=== PATIENT | male | born 1945 | race Caucasian/White ===

== ENCOUNTER → 2021-10-30 | Outpatient (REF) | payer SELFPAY ==
[2021-10-30 09:23] LABS: Absolute Lymphocyte Count 2.35 X10^3/uL (0.83-4.51); Absolute Neutrophil Count 4.7 X10^3/uL (2.0-7.7); Basophil# 0.01 X10^3/uL; Basophil% 0.1 % (0-1); Eosinophil# 0.11 X10^3/uL; Eosinophils% 1.4 % (0-5); Hematocrit 30.8 % (40-54); Hemoglobin 9.7 g/dL (13.0-16.5); Lymphocyte # 2.35 X10^3/ul (0.83-4.51); Lymphocyte % 29.7 % (19-41); Mean Corp Hgb Conc 31.5 g/dL (32-36); Mean Corpuscular Hgb 29.1 pg (27.0-32.0); Mean Corpuscular Volume 92.5 fL (80-94); Monocyte# 0.72 X10^3/uL; Monocyte% 9.1 % (0-10); NRBC Flagged by Analyzer 0 % (0-5); Neutrophil % 59.4 % (47-70); Platelet Count 175 K/mm3 (150-450); RBC Distribution Width CV 14.5 % (11.6-14.6); RBC Distribution Width SD 48.9 fl (35.1-43.9); Red Blood Count 3.33 M/mm3 (4.6-6.2); White Blood Count 7.9 K/mm3 (4.4-11.0)
[2021-10-30 09:34] LABS: Anion Gap 2 (5-15); BUN 24 mg/dL (7-18); BUN/Creat Ratio 14.9 RATIO (10-20); Calcium,Total 8.4 mg/dL (8.5-10.1); Chloride 97 mmol/L (98-107); Creatinine, Serum 1.61 mg/dL (0.70-1.30); EST Glomerular Filtration Rate 45 mL/min (>60); Est Glom Filt Rate - Afr Amer 54 mL/min (>60); Glucose 116 mg/dL (74-106); Potassium 4.7 mmol/L (3.5-5.1); Sodium Level 133 mmol/L (136-145)
== END | disposition home or self-care (01) ==
LOC: OLS.WHLTCC 05:00
PROVIDERS: Visit Provider Family Medicine
DX: I48.20 Chronic atrial fibrillation, unspecified (principal); R54 Age-related physical debility; M62.81 Muscle weakness (generalized); R26.2 Difficulty in walking, not elsewhere classified; R27.8 Other lack of coordination; D50.9 Iron deficiency anemia, unspecified; Z74.1 Need for assistance with personal care
CPT/HCPCS: 36415; 80048; 85025

== ENCOUNTER → 2021-11-06 | Outpatient (REF) | payer SELFPAY ==
[2021-11-06 08:49] LABS: Absolute Lymphocyte Count 2.38 X10^3/uL (0.83-4.51); Absolute Neutrophil Count 3.1 X10^3/uL (2.0-7.7); Basophil# 0.01 X10^3/uL; Basophil% 0.2 % (0-1); Eosinophil# 0.08 X10^3/uL; Eosinophils% 1.3 % (0-5); Hematocrit 27.2 % (40-54); Hemoglobin 8.7 g/dL (13.0-16.5); Lymphocyte # 2.38 X10^3/ul (0.83-4.51); Lymphocyte % 37.8 % (19-41); Mean Corpuscular Volume 90.7 fL (80-94); Mean Platelet Vol. 10.2 fl (6.2-12.0); Monocyte# 0.68 X10^3/uL; Monocyte% 10.8 % (0-10); NRBC Flagged by Analyzer 0 % (0-5); Neutrophil # 3.12 X10^3/uL (2.7-7.7); Neutrophil % 49.4 % (47-70); Platelet Count 220 K/mm3 (150-450); RBC Distribution Width SD 46.5 fl (35.1-43.9); White Blood Count 6.3 K/mm3 (4.4-11.0)
[2021-11-06 09:14] LABS: Anion Gap 4 (5-15); BUN 35 mg/dL (7-18); BUN/Creat Ratio 22.7 RATIO (10-20); Calcium,Total 8.4 mg/dL (8.5-10.1); Chloride 96 mmol/L (98-107); Creatinine, Serum 1.54 mg/dL (0.70-1.30); EST Glomerular Filtration Rate 47 mL/min (>60); Est Glom Filt Rate - Afr Amer 57 mL/min (>60); Glucose 122 mg/dL (74-106); Potassium 4.3 mmol/L (3.5-5.1); Sodium Level 133 mmol/L (136-145)
== END | disposition home or self-care (01) ==
LOC: OLS.WHLTCC 04:00
PROVIDERS: Referring Provider Family Medicine; Visit Provider Family Medicine
DX: I48.20 Chronic atrial fibrillation, unspecified (principal); R54 Age-related physical debility; M62.81 Muscle weakness (generalized); R26.2 Difficulty in walking, not elsewhere classified; R27.8 Other lack of coordination; D50.9 Iron deficiency anemia, unspecified; Z74.1 Need for assistance with personal care
CPT/HCPCS: 36415; 80048; 85025

== ENCOUNTER → 2021-11-13 | Outpatient (REF) | payer SELFPAY ==
[2021-11-13 09:12] LABS: Absolute Lymphocyte Count 2.59 X10^3/uL (0.83-4.51); Absolute Neutrophil Count 4.1 X10^3/uL (2.0-7.7); Basophil# 0.01 X10^3/uL; Basophil% 0.1 % (0-1); Eosinophil# 0.07 X10^3/uL; Eosinophils% 0.9 % (0-5); Hematocrit 28.5 % (40-54); Hemoglobin 9.1 g/dL (13.0-16.5); Lymphocyte # 2.59 X10^3/ul (0.83-4.51); Lymphocyte % 34.5 % (19-41); Mean Corp Hgb Conc 31.9 g/dL (32-36); Mean Corpuscular Hgb 28.8 pg (27.0-32.0); Mean Corpuscular Volume 90.2 fL (80-94); Mean Platelet Vol. 10.5 fl (6.2-12.0); Monocyte# 0.68 X10^3/uL; Monocyte% 9.1 % (0-10); NRBC Flagged by Analyzer 0 % (0-5); Neutrophil # 4.13 X10^3/uL (2.7-7.7); Neutrophil % 55.1 % (47-70); Platelet Count 210 K/mm3 (150-450); RBC Distribution Width CV 14.4 % (11.6-14.6); RBC Distribution Width SD 47.5 fl (35.1-43.9); Red Blood Count 3.16 M/mm3 (4.6-6.2); White Blood Count 7.5 K/mm3 (4.4-11.0)
[2021-11-13 09:23] LABS: Anion Gap 7 (5-15); BUN 37 mg/dL (7-18); BUN/Creat Ratio 21.5 RATIO (10-20); Calcium,Total 8.3 mg/dL (8.5-10.1); Chloride 95 mmol/L (98-107); Creatinine, Serum 1.72 mg/dL (0.70-1.30); EST Glomerular Filtration Rate 41 mL/min (>60); Est Glom Filt Rate - Afr Amer 50 mL/min (>60); Glucose 148 mg/dL (74-106); Potassium 3.7 mmol/L (3.5-5.1); Sodium Level 134 mmol/L (136-145)
== END | disposition home or self-care (01) ==
LOC: OLS.WHLTCC 04:00
PROVIDERS: Referring Provider Family Medicine; Visit Provider Family Medicine
DX: I48.20 Chronic atrial fibrillation, unspecified (principal); R54 Age-related physical debility; M62.81 Muscle weakness (generalized); R26.2 Difficulty in walking, not elsewhere classified; R27.8 Other lack of coordination; D50.9 Iron deficiency anemia, unspecified; Z74.1 Need for assistance with personal care
CPT/HCPCS: 36415; 80048; 85025

== ENCOUNTER → 2021-12-06 | Outpatient (REF) | payer SELFPAY ==
[2021-12-06 09:23] LABS: Absolute Lymphocyte Count 2.88 X10^3/uL (0.83-4.51); Absolute Neutrophil Count 4.2 X10^3/uL (2.0-7.7); Basophil# 0.02 X10^3/uL; Basophil% 0.3 % (0-1); Eosinophil# 0.07 X10^3/uL; Eosinophils% 0.9 % (0-5); Hematocrit 29.1 % (40-54); Hemoglobin 8.9 g/dL (13.0-16.5); Lymphocyte # 2.88 X10^3/ul (0.83-4.51); Lymphocyte % 36.4 % (19-41); Mean Corp Hgb Conc 30.6 g/dL (32-36); Mean Corpuscular Hgb 28.3 pg (27.0-32.0); Mean Corpuscular Volume 92.4 fL (80-94); Mean Platelet Vol. 10.3 fl (6.2-12.0); Monocyte# 0.74 X10^3/uL; Monocyte% 9.4 % (0-10); NRBC Flagged by Analyzer 0 % (0-5); Neutrophil # 4.16 X10^3/uL (2.7-7.7); Neutrophil % 52.5 % (47-70); Platelet Count 269 K/mm3 (150-450); RBC Distribution Width CV 14.7 % (11.6-14.6); Red Blood Count 3.15 M/mm3 (4.6-6.2); White Blood Count 7.9 K/mm3 (4.4-11.0)
[2021-12-06 09:31] LABS: Anion Gap 4 (5-15); BUN 33 mg/dL (7-18); BUN/Creat Ratio 19.3 RATIO (10-20); Calcium,Total 8.7 mg/dL (8.5-10.1); Chloride 102 mmol/L (98-107); Creatinine, Serum 1.71 mg/dL (0.70-1.30); EST Glomerular Filtration Rate 42 mL/min (>60); Est Glom Filt Rate - Afr Amer 50 mL/min (>60); Glucose 122 mg/dL (74-106); Potassium 4.4 mmol/L (3.5-5.1); Sodium Level 137 mmol/L (136-145)
== END | disposition home or self-care (01) ==
LOC: OLS.WHLEAS 07:50
PROVIDERS: Visit Provider Family Medicine
DX: I48.20 Chronic atrial fibrillation, unspecified (principal); R54 Age-related physical debility; M62.81 Muscle weakness (generalized); R26.2 Difficulty in walking, not elsewhere classified; R27.8 Other lack of coordination; D50.9 Iron deficiency anemia, unspecified; Z74.1 Need for assistance with personal care
CPT/HCPCS: 36415; 80048; 85025

== ENCOUNTER → 2022-01-03 | Outpatient (REF) | payer MEDICARE, MEDICAID, SELFPAY ==
[2022-01-03 09:14] LABS: Absolute Lymphocyte Count 1.85 X10^3/uL (0.83-4.51); Absolute Neutrophil Count 4.7 X10^3/uL (2.0-7.7); Basophil# 0.01 X10^3/uL; Basophil% 0.1 % (0-1); Eosinophil# 0.06 X10^3/uL; Eosinophils% 0.8 % (0-5); Hematocrit 24.7 % (40-54); Hemoglobin 7.7 g/dL (13.0-16.5); Lymphocyte # 1.85 X10^3/ul (0.83-4.51); Lymphocyte % 25.1 % (19-41); Mean Corp Hgb Conc 31.2 g/dL (32-36); Mean Corpuscular Hgb 26.7 pg (27.0-32.0); Mean Corpuscular Volume 85.8 fL (80-94); Mean Platelet Vol. 9.9 fl (6.2-12.0); Monocyte# 0.76 X10^3/uL; Monocyte% 10.3 % (0-10); NRBC Flagged by Analyzer 0 % (0-5); Neutrophil # 4.65 X10^3/uL (2.7-7.7); Neutrophil % 63.3 % (47-70); Platelet Count 211 K/mm3 (150-450); RBC Distribution Width CV 14.3 % (11.6-14.6); RBC Distribution Width SD 44.3 fl (35.1-43.9); Red Blood Count 2.88 M/mm3 (4.6-6.2); White Blood Count 7.4 K/mm3 (4.4-11.0)
[2022-01-03 09:30] LABS: Anion Gap 5 (5-15); BUN 25 mg/dL (7-18); BUN/Creat Ratio 17.9 RATIO (10-20); Calcium,Total 8.3 mg/dL (8.5-10.1); Chloride 87 mmol/L (98-107); EST Glomerular Filtration Rate 52 mL/min (>60); Est Glom Filt Rate - Afr Amer 63 mL/min (>60); Glucose 109 mg/dL (74-106); Potassium 4.8 mmol/L (3.5-5.1); Sodium Level 126 mmol/L (136-145)
[2022-01-03 09:45] LABS: Vitamin B12 1329 pg/mL (211-911)
[2022-01-03 10:02] LABS: Hemoglobin A1c 5.9 % (3.8-5.6)
== END | disposition home or self-care (01) ==
LOC: OLS.WHLEAS 05:00
PROVIDERS: Visit Provider Family Medicine
DX: I48.20 Chronic atrial fibrillation, unspecified (principal); E11.9 Type 2 diabetes mellitus without complications; R54 Age-related physical debility; M62.81 Muscle weakness (generalized); R26.2 Difficulty in walking, not elsewhere classified; R27.8 Other lack of coordination; D51.9 Vitamin B12 deficiency anemia, unspecified; E83.42 Hypomagnesemia; Z74.1 Need for assistance with personal care
CPT/HCPCS: 36415; 80048; 82607; 83036; 83735; 85025

== ENCOUNTER 2022-01-30 22:40 | Inpatient (IN) | payer MEDICARE, MEDICAID, SELFPAY ==
[2022-01-30 22:42] VITALS: BP 109/67; PULSE 128; RESP 15; TEMP 37.1; O2SAT 93; BMI 34.5
[2022-01-30 22:46] VITALS: O2SAT 93
[2022-01-30 23:00] VITALS: O2SAT 95
--- NOTE | 2022-01-30 23:00 | EKG12_ITS ---
Test Reason : DYSRHYTHMIA Blood Pressure : / mmHG Vent. Rate : 117 BPM Atrial Rate : 117 BPM P-R Int : 000 ms QRS Dur : 162 ms QT Int : 386 ms P-R-T Axes : 000 -70 053 degrees QTc Int : 538 ms Likely A-flutter Left axis deviation Right bundle branch block Septal infarct , age undetermined Abnormal ECG Confirmed by BASIA GARCIA, LULY ([id number]), social media editor JOSE VELA ([id number]) on 02/01/2022 1:31:07 PM Referred By: MICKEY Confirmed By:NEYDA FLOR MD
--- NOTE | 2022-01-30 23:00 | RAD_ITS ---
STUDY: X-RAY CHEST REASON FOR EXAM: Male, 76 years old. Chest pain. Shortness of breath and wheezing. TECHNIQUE: Single AP portable view of the chest. COMPARISON: None. FINDINGS: The lungs are hypoexpanded. There is atelectasis versus infiltrate at the lung bases. Question small left pleural effusion. Normal size heart. Is evidence of median sternotomy. Left-sided cardiac pacemaker/ICD. Normal mediastinum and janeth. Normal visualized pulmonary arteries. Normal visualized aortic arch and descending thoracic aorta. The thoracic spine is obscured by the mediastinum. There is degenerative osteoarthritis of the bilateral shoulders. There is no demonstrated abnormality of the visualized soft tissue structures of the upper abdomen. RAD/Chest 1 View (Portable) IMPRESSION: 1. Infiltrate versus atelectasis at the lung bases with left pleural effusion 2. Cardiac pacemaker and evidence of median sternotomy.. Electronically Signed: Chito Conde DO at 23:43 EDT ,
--- NOTE | 2022-01-30 23:19 | EDS_ITS ---
HPI History of Present Illness Chief Complaint: Shortness of Breath Narrative Narrative: 76-year-old male presenting for shortness of breath, lightheadedness, weakness. He states its been a couple of days. Patient is a poor informant and does not provide much history otherwise. He does state that he is not having any chest pain. He does wear home oxygen which is 3 L via nasal cannula. Patient states that he does have a history of GI bleeding but has not noticed any black or bloo dy stools. Patient is on Eliquis for history of A. fib. [facility] Medical History (Updated 01/31/22 @ 00:[address] Marly Tolentino MD) Anxiety and depression Bipolar disorder BPH (benign prostatic hyperplasia) CAD (coronary artery disease) CHF (congestive heart failure) Chronic anemia Chronic respiratory failure with hypoxia CKD (chronic kidney disease), stage III COPD (chronic obstructive pulmonary disease) Diabetes mellitus, type 2 Former tobacco use GERD (gastroesophageal reflux disease) History of colon cancer History of GI bleed History of lung cancer History of placement of internal cardiac defibrillator HLD (hyperlipidemia) HTN (hypertension) Insomnia PAF (paroxysmal atrial fibrillation) Home Medications amitriptyline 150 mg tablet 150 mg PO DAILY 01/31/22 [History Last Taken Unknown] apixaban 5 mg tablet (Eliquis) 5 mg PO BID 01/31/22 [History Last Taken Unknown] aspirin 81 mg capsule 81 mg PO DAILY 01/31/22 [History Last Taken Unknown] buspirone 10 mg tablet 20 mg PO TID 01/31/22 [History Last Taken Unknown] cyanocobalamin (vitamin B-12) 1,000 mcg sublingual lozenge 1,000 mcg sublingual DAILY 01/31/22 [History Last Taken Unknown] duloxetine 60 mg capsule,delayed release (Cymbalta) 90 mg PO DAILY 01/31/22 [History Last Taken Unknown] finasteride 5 mg tablet 5 mg PO DAILY 01/31/22 [History Last Taken Unknown] fluticasone 500 mcg-salmeterol 50 mcg/dose blistr powdr for inhalation 1 inh inhalation BID 01/31/22 [History Last Taken Unknown] furosemide 40 mg tablet (Lasix) 40 mg PO BID 01/31/22 [History Last Taken Unknown] insulin glargine 100 unit/mL (3 mL) subcutaneous pen (Lantus Solostar U-100 Insulin) 12 unit subcut QHS 01/31/22 [History Last Taken Unknown] melatonin 3 mg capsule 3 mg PO QHS 01/31/22 [History Last Taken Unknown] metoprolol succinate 50 mg tablet,extended release 24 hr 50 mg PO DAILY 01/31/22 [History Last Taken Unknown] olanzapine 20 mg tablet 30 mg PO QHS 01/31/22 [History Last Taken Unknown] pantoprazole 20 mg tablet,delayed release 40 mg PO DAILY 01/31/22 [History Last Taken Unknown] potassium chloride 20 mEq tablet,extended release 40 meq PO DAILY 01/31/22 [History Last Taken Unknown] prazosin 5 mg capsule 5 mg PO QPM 01/31/22 [History Last Taken Unknown] sacubitril 24 mg-valsartan 26 mg tablet (Entresto) 1 tab PO BID 01/31/22 [History Last Taken Unknown] Allergy/AdvReac Type Severity Reaction Status Date / Time lithium Allergy PT UNSURE Verified 01/30/22 22:46 OF REACTION Family History (Updated 01/31/22 @ 00:[address] Marly Tolentino MD) Mother Heart disease Father Heart disease Surgical History (Updated 01/31/22 @ 00:[address] Marly Tolentino MD) History of tonsillectomy and adenoidectomy History of total bilateral knee replacement History of total right hip replacement S/P appendectomy S/P CABG x 3 S/P cholecystectomy Social History (Updated 01/31/22 @ 00:[address] Marly Tolentino MD) housing: snf Smoking Status: Former smoker how long ago did patient quit smoking: Smoked up to 3 ppd since teen until quit 2005. alcohol intake: never substance use type: does not use ROS ROS ED Constitutional Constitutional ED: Denies chills or sweats Eyes Eyes: Denies change in vision ENT ENT ED: Denies rhinorrhea or sore throat Cardiovascular Cardiovascular: Reports palpitations and racing heartbeat Respiratory/Chest Respiratory/Chest: Reports dyspnea and dyspnea on exertion Gastrointestinal Gastrointestinal: Denies abdominal pain, constipation or melena Genitourinary Genitourinary ED: Denies dysuria or hematuria Musculoskeletal Musculoskeletal: Denies arthralgias or back pain Integumentary Denies abscess Neurologic Neurologic: Denies headache(s) or paresthesias Psychiatric Psychiatric: Denies anxiety or depression EXAM Physical Exam Const Vital Signs: 01/30/22 22:42 01/30/22 22:46 01/30/22 23:00 Temperature 98.7 F Temperature Source Temporal Pulse Rate 128 H Respiratory Rate 15 Respiratory Effort Short of Breath Labored Blood Pressure 109/67 Blood Pressure Mean 81 Pulse Ox 93 95 Oxygen Delivery Method Nasal Cannula Nasal Cannula Venturi Mask Oxygen Flow Rate (L/min) 4 4 01/31/22 00:01 Temperature Temperature Source Pulse Rate 115 H Respiratory Rate 14 Respiratory Effort Blood Pressure 85/47 L Blood Pressure Mean 59 Pulse Ox 94 Oxygen Delivery Method Nasal Cannula Oxygen Flow Rate (L/min) 6 Positive well nourished and obese General Appearance ED: pallor Nutritional Appearance: obese HEENT Reports dry mucous membranes atraumatic Mouth ED: Yes dry mucous membranes Mouth: dry mucous membranes Eyes PERRL General Eye ED: Yes pale conjunctiva; Negative for scleral icterus Resp Auscultation: rhonchi throughout; Negative for wheezes Cardio regular rhythm Rate: tachycardic GI non-tender and non-distended Neuro CN's II-XII intact bilaterally and no sensory deficits noted Sensorium / Orientation: alert Speech: speech normal Skin General Skin Exam: pallor; Negative for jaundice Lesions: no lesions MDM MDM MDM Narrative Medical decision making narrative: Presenting lightheaded and weakness. He does appear to be short of breath. He is not complaining of this necessarily. No reported fevers. He normally wears 3 L of oxygen via nasal cannula currently he is requiring anywhere from 4-6. Was unclear whether he was in acute heart failure so initially I withheld fluids. His blood pressure was 109/67 and his heart rate was 129. I obtained an EKG which on my interpretation shows a sinus sinus rhythm with a ventricular rate of 170 bpm with right bundle dale block and QTC prolongation of 538. Chest x-ray on my interpretation shows a left pleural effusion and infiltrate versus atelectasis at the bases. Patient CBC shows a slight leukocytosis at 13.8. Hemoglobin is stable at 7.7. Platelets are normal at 305. Creatinine is somewhat elevated at 1.72 at last check it was 1.4. GFR of 41 today. BNP is 45.6. High-sensitivity troponin is 10. Patient's blood pressure did dip to 85/47 so I did give him 500 cc of IV fluids. I went to reevaluate him he said he is feeling fine and he wants to go home. I spoke with his son who is his power of funeral home makeup artist and he states that he has been steadily declining for over a year. He states that his father is basically given up and does not [facility]. He does report that he had a previous history of colon resection secondary to cancer. He was never on chemotherapy. We did discuss that he does not want to be intubated per the son. I did discuss with him the possibility of putting in a central line and I went over the risk and benefit of this. Given that his son feels like he has been steadily declining he does not want to to do anything really invasive and states he feels comfortable if the patient is not improving with some hydration and treatment in the hospital that he would consider palliative/hospice care for his father. Discussed with the hospitalist for admission and will treat as possible aspiration pneumonia due to infiltrate and leukocytosis. Patient's blood pressure was not improving and he was given another 500 cc bolus and started at a rate of 125 an hour. Impression: 1. Leukocytosis 2. Aspiration pneumonia 3. Dehydration 4. Hypotension 5. Chronic knee Lab Data Attestation: I reviewed the patient's lab results. Labs: Laboratory Results - last 24 hr 01/30/22 01/30/22 01/30/22 22:55 22:55 22:55 WBC 13.8 H RBC 3.00 L Hgb 7.7 L Hct 25.0 L MCV 83.3 MCH 25.7 L MCHC 30.8 L RDW Std Deviation 45.6 H RDW Coeff of James 15.0 H Plt Count 305 MPV 9.6 Immature Gran % (Auto) 0.600 Neut % (Auto) 89.7 H Lymph % (Auto) 3.6 L Mcminn % (Auto) 5.9 Eos % (Auto) 0.1 Baso % (Auto) 0.1 Absolute Neuts (auto) 12.4 H Absolute Lymphs (auto) 0.50 L Nucleated RBC % 0 Anisocytosis 1+ Sodium 129 L Potassium 4.7 Chloride 91 L Carbon Dioxide 29.0 Anion Gap 9 BUN 26 H Creatinine 1.72 H Estim Creat Clear Calc 40.73 Est GFR (MDRD) Af Amer 50 L Est GFR (MDRD) Non-Af 41 L BUN/Creatinine Ratio 15.1 Glucose 211 H Calcium 8.6 Troponin I High Sens 10 B-Natriuretic Peptide 45.6 Urine Color Urine Clarity Urine pH Ur Specific Crete Urine Protein Urine Glucose (UA) Urine Ketones Urine Occult Blood Urine Nitrite Urine Bilirubin Urine Urobilinogen Ur Leukocyte Esterase Urine RBC Urine WBC Ur Squamous Epith Cells Urine Bacteria Urine Mucus 01/31/22 00:35 WBC RBC Hgb Hct MCV MCH MCHC RDW Std Deviation RDW Coeff of James Plt Count MPV Immature Gran % (Auto) Neut % (Auto) Lymph % (Auto) Mcminn % (Auto) Eos % (Auto) Baso % (Auto) Absolute Neuts (auto) Absolute Lymphs (auto) Nucleated RBC % Anisocytosis Sodium Potassium Chloride Carbon Dioxide Anion Gap BUN Creatinine Estim Creat Clear Calc Est GFR (MDRD) Af Amer Est GFR (MDRD) Non-Af BUN/Creatinine Ratio Glucose Calcium Troponin I High Sens B-Natriuretic Peptide Urine Color Yellow Urine Clarity Clear Urine pH 6.0 Ur Specific Crete 1.010 Urine Protein 30 H Urine Glucose (UA) Normal Urine Ketones Negative Urine Occult Blood 25 H Urine Nitrite Negative Urine Bilirubin Negative Urine Urobilinogen Normal Ur Leukocyte Esterase 25 H Urine RBC 0-5 SEEN Urine WBC 0-5 SEEN Ur Squamous Epith Cells 0 SEEN Urine Bacteria 0 SEEN Urine Mucus 0 SEEN Radiography Diagnostic Testing: Clinical Impression(s) from Imaging Studies Chest X-Ray 01/30/22 23:00 IMPRESSION: 1. Infiltrate versus atelectasis at the lung bases with left pleural effusion 2. Cardiac pacemaker and evidence of median sternotomy.. Electronically Signed: Chito Conde DO at 23:43 EDT Reading Location ID and State: [address] [place] [address] Tel [phone], Service support , Discharge Plan Triage Chief Complaint: Shortness of Breath ED Provider: Abran Fong Dx/Rx/DC Orders Primary Care Provider: Vernon Mckenna
[2022-01-30 23:33] LABS: BNP,B-Type NATRIURETIC PEPTIDE 45.6 pg/mL (0-100)
[2022-01-30 23:36] LABS: Anion Gap 9 (5-15); BUN 26 mg/dL (7-18); BUN/Creat Ratio 15.1 RATIO (10-20); Calcium,Total 8.6 mg/dL (8.5-10.1); Chloride 91 mmol/L (98-107); Creatinine, Serum 1.72 mg/dL (0.70-1.30); EST Glomerular Filtration Rate 41 mL/min (>60); Est Glom Filt Rate - Afr Amer 50 mL/min (>60); Estimated Creatinine Clearance 40.73 ml/min; Glucose 211 mg/dL (74-106); Potassium 4.7 mmol/L (3.5-5.1); Sodium Level 129 mmol/L (136-145); Troponin-I HS (w/2H Reflex) 10 pg/mL (3.0-78.0)
[2022-01-30 23:37] LABS: Absolute Neutrophil Count 12.4 X10^3/uL (2.0-7.7); Basophil# 0.02 X10^3/uL; Basophil% 0.1 % (0-1); Eosinophil# 0.02 X10^3/uL; Eosinophils% 0.1 % (0-5); Hemoglobin 7.7 g/dL (13.0-16.5); Lymphocyte % 3.6 % (19-41); Mean Corp Hgb Conc 30.8 g/dL (32-36); Mean Corpuscular Hgb 25.7 pg (27.0-32.0); Mean Corpuscular Volume 83.3 fL (80-94); Mean Platelet Vol. 9.6 fl (6.2-12.0); Monocyte# 0.81 X10^3/uL; Monocyte% 5.9 % (0-10); NRBC Flagged by Analyzer 0 % (0-5); Neutrophil # 12.41 X10^3/uL (2.7-7.7); Neutrophil % 89.7 % (47-70); POSITIVE DIFFERENTIAL YES; Platelet Count 305 K/mm3 (150-450); RBC Distribution Width SD 45.6 fl (35.1-43.9); White Blood Count 13.8 K/mm3 (4.4-11.0)
[2022-01-31] VITALS (29 sets, daily range): BP systolic 74–137; BP diastolic 42–121; PULSE 60–115; RESP 12–40; TEMP 36.4–37; O2SAT 90–100; BMI 35.9
[2022-01-31] LABS: Differential Indicated SCAN CRITERIA MET
[2022-01-31 00:20] LABS: Anisocytosis 1+
[2022-01-31 00:38] LABS: Bacteria 0 SEEN /hpf (None Seen); Mucous, Urine 0 SEEN /hpf (<or=2+); Squamous Epithelial Cells - UA 0 SEEN /hpf (0-5)
[2022-01-31 00:40] LABS: Color, Urine Yellow (Yellow); Glucose, Dipstick Normal (Normal); Ketone-Dipstick Negative (Negative); Leukocyte Esterase-Dipstick 25 /ul (Negative); Nitrite-Dipstick Negative (Negative); Occult Blood-Urine 25 /ul (Negative); Protein-Dipstick 30 mg/dl (Negative); Urine Bilirubin Dipstick Negative (Negative); Urine Clarity Clear (Clear); Urine Urobilinogen Normal (Normal)
--- NOTE | 2022-01-31 00:44 | HP.PCM.HOS_ITS ---
[facility] - General General Date of Service: 01/31/22 Chief Complaint: Cough, dyspnea, nausea, emesis. HPI Narrative The patient is a 76 y/o M w/ PMHx: Diabetes mellitus type II, CKD stage III unclear subtype (Baseline Cr 1.7), Hx Colon CA, Hx Lung CA, CAD s/p CABG x 3, Chronic CHF Unclear type/Ischemic Cardiomyopathy s/p AICD, GERD w/ Hx GI bleed, Chronic anemia/Fe deficiency anemia, Chronic AF on eliquis, Anxiety and Depression/Bipolar disorder/Insomnia, HTN, HLD, BPH, COPD w/ Chronic Hypoxic Respiratory Failure (3L NC), Former tobacco use who presents to the [facility] ED on 01/30/22 with history of dyspnea, nonproductive cough, lightheadedness and weakness in addition to nausea with occasional emesis and poor oral intake ongoing for the last 2 days with no associated chest discomfort prompting ED evaluation. He denies any coughing episodes with food intake. Work-up in the ED included T98.7, heart rate 128, BP 109/67--> most recent repeat BP 85/47, respiratory rate 15, 93% on 4 L nasal cannula--> most recent 94% requiring increased to 6 L nasal cannula, CBC with WBC 13.8, hemoglobin 7.7, MCV 83.3, platelet 305 with left shift and lymphopenia, BMP with sodium 129, chloride 91, BUN/plan 26/1.72, glucose 211, troponin 10, BNP 45.6, chest x-ray , EKG sinus rhythm with no acute evidence of ischemia with nonspecific changes, COVID antigen negative, UA pending upon evaluation. [facility] Medical History (Updated 01/31/22 @ 00:[address] Marly Tolentino MD) Anxiety and depression Bipolar disorder BPH (benign prostatic hyperplasia) CAD (coronary artery disease) CHF (congestive heart failure) Chronic anemia Chronic respiratory failure with hypoxia CKD (chronic kidney disease), stage III COPD (chronic obstructive pulmonary disease) Diabetes mellitus, type 2 Former tobacco use GERD (gastroesophageal reflux disease) History of colon cancer History of GI bleed History of lung cancer History of placement of internal cardiac defibrillator HLD (hyperlipidemia) HTN (hypertension) Insomnia PAF (paroxysmal atrial fibrillation) Home Medications amitriptyline 150 mg tablet 150 mg PO DAILY 01/31/22 [History Last Taken Unknown] apixaban 5 mg tablet (Eliquis) 5 mg PO BID 01/31/22 [History Last Taken Unknown] aspirin 81 mg capsule 81 mg PO DAILY 01/31/22 [History Last Taken Unknown] buspirone 10 mg tablet 20 mg PO TID 01/31/22 [History Last Taken Unknown] cyanocobalamin (vitamin B-12) 1,000 mcg sublingual lozenge 1,000 mcg sublingual DAILY 01/31/22 [History Last Taken Unknown] duloxetine 60 mg capsule,delayed release (Cymbalta) 90 mg PO DAILY 01/31/22 [His tory Last Taken Unknown] finasteride 5 mg tablet 5 mg PO DAILY 01/31/22 [History Last Taken Unknown] fluticasone 500 mcg-salmeterol 50 mcg/dose blistr powdr for inhalation 1 inh inhalation BID 01/31/22 [History Last Taken Unknown] furosemide 40 mg tablet (Lasix) 40 mg PO BID 01/31/22 [History Last Taken Unknown] insulin glargine 100 unit/mL (3 mL) subcutaneous pen (Lantus Solostar U-100 Insulin) 12 unit subcut QHS 01/31/22 [History Last Taken Unknown] melatonin 3 mg capsule 3 mg PO QHS 01/31/22 [History Last Taken Unknown] metoprolol succinate 50 mg tablet,extended release 24 hr 50 mg PO DAILY 01/31/22 [History Last Taken Unknown] olanzapine 20 mg tablet 30 mg PO QHS 01/31/22 [History Last Taken Unknown] pantoprazole 20 mg tablet,delayed release 40 mg PO DAILY 01/31/22 [History Last Taken Unknown] potassium chloride 20 mEq tablet,extended release 40 meq PO DAILY 01/31/22 [History Last Taken Unknown] prazosin 5 mg capsule 5 mg PO QPM 01/31/22 [History Last Taken Unknown] sacubitril 24 mg-valsartan 26 mg tablet (Entresto) 1 tab PO BID 01/31/22 [History Last Taken Unknown] Allergy/AdvReac Type Severity Reaction Status Date / Time lithium Allergy PT UNSURE Verified 01/30/22 22:46 OF REACTION Family History (Updated 01/31/22 @ 00:[address] Marly Tolentino MD) Mother Heart disease Father Heart disease Surgical History (Updated 01/31/22 @ 00:[address] Marly Tolentino MD) History of tonsillectomy and adenoidectomy History of total bilateral knee replacement History of total right hip replacement S/P appendectomy S/P CABG x 3 S/P cholecystectomy Social History (Updated 01/31/22 @ 00:[address] Marly Tolentino MD) housing: jail Smoking Status: Former smoker how long ago did patient quit smoking: Smoked up to 3 ppd since teen until quit 2005. alcohol intake: never substance use type: does not use ROS ROS Narrative Admission Review of Systems: CONSTITUTIONAL: No weight loss, fever, chills, + weakness or fatigue. HEENT: Eyes: No visual loss, blurred vision, double vision or yellow sclerae. Ears, Nose, Throat: No hearing loss, sneezing, congestion, runny nose or sore throat. SKIN: No rash or itching, lesions, wounds. CARDIOVASCULAR: No chest pain, chest pressure or chest discomfort, palpitations, edema, orthopnea, syncopal events. RESPIRATORY: + shortness of breath, cough without marked sputum, No wheezing, hemoptysis. GASTROINTESTINAL: + anorexia, nausea, vomiting, No diarrhea, abdominal pain, melena, BRBPR. GENITOURINARY: No dysuria, frequency, urgency or retention. NEUROLOGICAL: No headache, dizziness, syncope, paralysis, ataxia, numbness or tingling in the extremities, focal weakness, change in bowel or bladder control, seizure. MUSCULOSKELETAL: + muscle, back pain, joint pain or stiffness. HEMATOLOGIC: + anemia, bleeding or bruising. LYMPHATICS: No enlarged nodes. No history of splenectomy. PSYCHIATRIC: + history of depression or anxiety. ENDOCRINOLOGIC: No reports of sweating, cold or heat intolerance. No polyuria or polydipsia. ALLERGIES: + history of rhinitis. Vital Signs Vital Signs Vital Signs: 01/30/22 22:42 01/30/22 22:46 01/30/22 23:00 Temperature 98.7 F Temperature Source Temporal Pulse Rate 128 H Respiratory Rate 15 Respiratory Effort Short of Breath Labored Blood Pressure 109/67 Blood Pressure Mean 81 Pulse Ox 93 95 Oxygen Delivery Method Nasal Cannula Nasal Cannula Venturi Mask Oxygen Flow Rate (L/min) 4 4 01/31/22 00:01 Temperature Temperature Source Pulse Rate 115 H Respiratory Rate 14 Respiratory Effort Blood Pressure 85/47 L Blood Pressure Mean 59 Pulse Ox 94 Oxygen Delivery Method Nasal Cannula Oxygen Flow Rate (L/min) 6 Weight Weight: 254 lb 13.67 oz Body Mass Index (BMI) 34.5 Physical Exam Narrative Physical Examination: General: Awake, alert, oriented to self, place and some recent events, but does have some underlying confusion evident, remains cooperative, seated upright in ED bed in no apparent distress but fatigued and ill appearing, holding emesis bag. Skin: Normal color, normal turgor, no icterus, no cyanosis except chronic venous stasis skin changes, see extremities. HEENT: AT/NC, EOMI, PERRLA, dry MM, no carotid bruits or JVD noted. Lungs: Significantly diffusely diminished, decreased breath sounds, poor air movement, mildly increased respiratory rate, no rales, ronchi or wheezing but minimal air movement. Heart: Tachycardic with regular rhythm; no gallop, rub audible. Abdomen: Soft, obese, NTTP, ND, hyperactive distant BS, no HSM. Extremities: No cyanosis, no clubbing, bilateral lower extremity pedal to proximal will 2-3+ pitting edema which patient reports is chronic. Neurological: Patient awake, alert, oriented as noted, cognitive function suspect near baseline intact with underlying likely cognitive decline; pupils equally reactive to light and accommodation, cranial nerves grossly normal, moving all 4 extremities, no focal deficits, strength severely globally creased. Psychiatric: Affect appears fatigued, ill-appearing, no acute evidence of depressive or anxiety feelings. Results Lab / Micro Data Result Diagrams: 01/30/22 22:55 01/30/22 22:55 Labs: Laboratory Results - last 24 hr 01/30/22 22:55: WBC 13.8 H, RBC 3.00 L, Hgb 7.7 L, Hct 25.0 L, MCV 83.3, MCH 25.7 L, MCHC 30.8 L, RDW Std Deviation 45.6 H, RDW Coeff of James 15.0 H, Plt Count 305, MPV 9.6, Immature Gran % (Auto) 0.600, Neut % (Auto) 89.7 H, Lymph % (Auto) 3.6 L, [place] % (Auto) 5.9, Eos % (Auto) 0.1, Baso % (Auto) 0.1, Absolute Neuts (auto) 12.4 H, Absolute Lymphs (auto) 0.50 L, Nucleated RBC % 0, Anisocytosis 1+ 07/12/22 22:55: Sodium 129 L, Potassium 4.7, Chloride 91 L, Carbon Dioxide 29.0, Anion Gap 9, BUN 26 H, Creatinine 1.72 H, Estim Creat Clear Calc 40.73, Est GFR (MDRD) Af Amer 50 L, Est GFR (MDRD) Non-Af 41 L, BUN/Creatinine Ratio 15.1, Glucose 211 H, Calcium 8.6, Troponin I High Sens 10 01/30/22 22:55: B-Natriuretic Peptide 45.6 01/31/22 00:35: Urine Color Yellow, Urine Clarity Clear, Urine pH 6.0, Ur Specific [place] 1.010, Urine Protein 30 H, Urine Glucose (UA) Normal, Urine Ketones Negative, Urine Occult Blood 25 H, Urine Nitrite Negative, Urine Bilirubin Negative, Urine Urobilinogen Normal, Ur Leukocyte Esterase 25 H Micro: Microbiology 01/30/22 23:41 Nasal Secretion SARS-CoV-2 Antigen (Rapid) - Final Radiology Impression Chest X-Ray 01/30/22 23:00 IMPRESSION: 1. Infiltrate versus atelectasis at the lung bases with left pleural effusion 2. Cardiac pacemaker and evidence of median sternotomy.. Electronically Signed: Chito Conde DO at 23:43 EDT Reading Location ID and State: [facility] / [place] Tel [phone], Service support , Assessment & Plan Assessment/Plan (1) Hypoxia: (2) Pneumonia: (3) Hypotension: PLAN: Plan The patient is a 76 y/o M w/ PMHx: Diabetes mellitus type II, CKD stage III unclear subtype (Baseline Cr 1.7), Hx Colon CA, Hx Lung CA, CAD s/p CABG x 3, Chronic CHF Unclear type/Ischemic Cardiomyopathy s/p AICD, GERD w/ Hx GI bleed, Chronic anemia/Fe deficiency anemia, Chronic AF on eliquis, Anxiety and Depression/Bipolar disorder/Insomnia, HTN, HLD, BPH, COPD w/ Chronic Hypoxic Respiratory Failure (3L NC), Former tobacco use who presents to the [facility] ED on 01/30/22 with history of dyspnea, nonproductive cough, lightheadedness and weakness in addition to nausea with occasional emesis and poor oral intake ongoing for the last 2 days with no associated chest discomfort prompting ED evaluation. #1. Acute Hypoxia on Chronic concerning for Clinical Pneumonia, concurrent concern Aspiration Component with associated #2: Will admit to PCU given hypotension, hypoxia, maintain on oxygen with wean as tolerated to home oxygen supplementation, continue ATC duonebs, PRN albuterol, maintained on IV Zosyn with pending MRSA screen, consult ST given concerns possible aspiration, some evidence of evaluation of managing his secretions, HOB, IS parameters w/ pending sputum cultures and urine antigens as well as full respiraotry viral panel. PT/OT/CM consultations for discharge planning. Plan repeat CXR in AM as not definitive infiltrate upon ED evaluation/assessment. #2. Acute on Chronic COPD w/ Chronic Hypoxic Respiratory Failure: Will maintain on oxygen with wean as tolerated to home oxygen supplementation (3L NC), ATC duonebs, PRN albuterol, initiate IV solumedrol given poor air movement, increasing oxygenation needs, HOB, IS parameters. #3. Acute hypotension with acute hyponatremia, suspected hypovolemic given recent GI losses and acute presentation #1: We will continue judicious hydration given underlying CHF history, hold hypertensive regimen. #4. Chronic CHF, unclear type but presumed Systolic/Ischemic Cardiomyopathy: s/p AICD placement with device evaluation/interrogation requested. We will continue Eliquis, statin, given hypotension we will temporarily hold Entresto, metoprolol, spironolactone, Lasix with resumption once able. #5. Diabetes mellitus type II: We will continue patient home insulin regimen, will maintain on ADA diet if intake safe however ST consulted as noted above #1 given concerns for possible aspiration component, accu checks w/ ISS. #6. CAD: Will continue eliquis, statin, given hypotension as noted above temporarily holding metoprolol, entresto regimen with 3 addition once BP. #7. Chronic anemia/Fe Deficiency anemia: Admission Hgb 7.7, baseline Hgb 8-9, will continue to trend. Guaiac pending per ED physician upon requested evaluation of patient. #8. Hypertension: Patient hypotensive as noted above, temporarily holding patient home regimen including Entresto, Lasix, metoprolol, spironolactone with 3 addition once appropriate. #9. Hyperlipidemia: We will continue patient on statin therapy. #10. Chronic Kidney Disease Stage III, unclear subtype: Admission BUN/Cr 26/1.72, baseline renal function 1.7 from prior records, repeat BMP in AM. #11. Chronic AF: We will continue patient home Eliquis regimen, temporarily holding metoprolol given hypotension, add back once. #12. Anxiety and depression/Bipolar disorder/Insomnia: We will continue patient home BuSpar, duloxetine and olanzapine regimen however will hold for sedation and for hypertension. #13. GERD w/ Hx GI bleed: We will continue patient home PPI. #14. Hx Colon CA, Hx Lung CA: Unclear specific types and staged, noted in history, considered in remission. #15. BPH: We will continue patient home finasteride regimen. #16. DVT Prophylaxis: SCDs, continue home eliquis regimen. #17. CODE status: Patient notes that his son Camron is his decision-maker. Not clear if living will is in place discussed CODE status at length including difference between FULL code, DNR-CCA and DNR-CC status. Following discussions about the differences in these status, requested continuation DNR-CCA, no intubation status which was also noted on SNF paperwork. Advanced Care Planning Face to Face Time: 16 minutes. Charges/Coding Visit Charges Inpatient E&M: 21149 Init Hosp L3 Procedures Hospitalists Procedures: 18483 Advncd Care Plan 30 Min
[2022-01-31 00:53] LABS: Red Blood Cells-Urine 0-5 SEEN /hpf (0-5); White Blood Cells 0-5 SEEN /hpf (0-5)
[2022-01-31 01:08] LABS: Reflex Troponin-HS? (from REC) Y
[2022-01-31 01:44] LABS: Troponin-I HS 12 pg/mL (3.0-78.0)
[2022-01-31 02:27] LABS: Procalcitonin < 0.04 ng/mL (0.00-0.09)
[2022-01-31] MEDS: 0.9% Normal Saline 1,000 ML 100 ML IV ×2 (03:01→14:40)
[2022-01-31] MEDS: MethylPREDNISolone 125 MG/2 ML Vial IV (03:11)
[2022-01-31] MEDS: 0.9% Normal Saline 1,000 ML 999 ML IV (04:54)
[2022-01-31 05:10] LABS: Allen Test Positive; Base Excess 0 mmol/L (-2 to +2); Bicarbonate 26.4 mmol/L (22-26); Blood Gas Specimen Type ART; FI02 45; Mode NIV; O2 Delivery Device BiPAP; PO2 97 mmHG (75-100); RR 38; SITE L Radial; SO2 97 % (95-99); Total Carbon Dioxide 28 mmol/L; Vt 478; pCO2 51.8 mmHg (35-45); pH 7.32 (7.35-7.45)
[2022-01-31 05:15] LABS: M R Staph aureus DNA By PCR POSITIVE (Negative); Probe Check PASS
[2022-01-31 05:54] LABS: Absolute Lymphocyte Count 0.42 X10^3/uL (0.83-4.51); Absolute Neutrophil Count 12.9 X10^3/uL (2.0-7.7); Basophil# 0.01 X10^3/uL; Basophil% 0.1 % (0-1); Hematocrit 20.3 % (40-54); Hemoglobin 6.3 g/dL (13.0-16.5); Lymphocyte # 0.42 X10^3/ul (0.83-4.51); Mean Corpuscular Hgb 25.8 pg (27.0-32.0); Mean Corpuscular Volume 83.2 fL (80-94); Mean Platelet Vol. 9.1 fl (6.2-12.0); Monocyte# 0.52 X10^3/uL; Monocyte% 3.7 % (0-10); NRBC Flagged by Analyzer 0 % (0-5); Neutrophil # 12.85 X10^3/uL (2.7-7.7); Neutrophil % 92.3 % (47-70); POSITIVE DIFFERENTIAL YES; Platelet Count 226 K/mm3 (150-450); RBC Distribution Width CV 15.2 % (11.6-14.6); RBC Distribution Width SD 46.7 fl (35.1-43.9); Red Blood Count 2.44 M/mm3 (4.6-6.2); White Blood Count 13.9 K/mm3 (4.4-11.0)
--- NOTE | 2022-01-31 05:55 | RAD_ITS ---
STUDY: X-RAY CHEST REASON FOR EXAM: Male, 76 years old. Dyspnea, cough TECHNIQUE: Single AP portable view of the chest. COMPARISON: Comparison is made with prior study dated 01/30/2022. FINDINGS: EKG electrodes are seen. Persistent increased markings at the lung bases worse at the left lung base suggest some bibasilar atelectasis. Blunting of both costophrenic angles. Sternal cerclage wires and vascular clips are present from a prior sternotomy and coronary artery bypass graft procedure (CABG). A left-sided dual-chamber pacemaker seen. Normal mediastinum and janeth. Normal visualized pulmonary arteries. There is atherosclerotic calcification of the aortic arch with tortuosity. There are diffuse degenerative changes of the visualized thoracic spine. Normal visualized ribs, clavicles, and shoulders. There is no demonstrated abnormality of the visualized soft tissue structures of the upper abdomen. RAD/Chest 1 View (Portable) IMPRESSION: Stable examination. Electronically Signed: Roque Gil MD at 8:49 EDT ,
[2022-01-31 05:57] LABS: Differential Indicated SCAN CRITERIA MET
[2022-01-31 06:11] LABS: Anisocytosis 1+
[2022-01-31 06:17] LABS: Troponin-I HS 12 pg/mL (3.0-78.0)
--- NOTE | 2022-01-31 06:29 | PCM.HOSP.N ---
Hospitalist Note AM repeat CBC w/ Hgb 6.3, was prior 7.7, prior baseline primarily had been 8-9 as prior noted. Will order 2 U PRBC, obtain iron panel, ferritin and guiac. Until further results are obtained will transition to clears and IV PPI. MAPs also remain below goal. To be cautious will transition patient to the ICU and request ICU consultation.
--- NOTE | 2022-01-31 06:32 | PCM.RX.CS ---
Consult Pharmacy has been consulted to manage selected antiobiotic: Vancomycin Type of Consult: New start Suspected Infection: Pneumonia Prior Doses of Antibiotics Received/Current Regimen: Medications Vancomycin HCl (Vancomycin) 1,000 mg in 200 mls @ 200 mls/hr IV Q12H HOWARD Vancomycin HCl 2,000 mg/ (Sodium Chloride) 540 mls @ 250 mls/hr IV X1 ONE Stop: 01/31/22 07:39 Last Admin: 01/31/22 06:22 Dose: 250 mls/hr Microbiology: Microbiology 01/31/22 00:35 Urine Catheter - Catheter Legionella Antigen - Final 01/31/22 00:35 Urine Catheter - Catheter Streptococcus pneumoniae Antigen (M - Final 01/31/22 01:30 Mucosa - Nasopharyngeal Respiratory Panel (PCR) - Final 01/30/22 23:41 Nasal Secretion SARS-CoV-2 Antigen (Rapid) - Final Weight used for dosin.5 kg Estimated Creatinine Clearance: 41 Goal Trough: 15-20 mcg/mL Pharmacy Plan for Drug Dosing: Pharmacy Service will continue to monitor and adjust dosing as required. Follow-Up Labs: Trough Vancomycin Labs to be done on [date and time ordered]: 02/01/22 @1800
--- NOTE | 2022-01-31 06:36 | PCM.HOSP.N ---
Hospitalist Note Discussed status decline with son and reviewed current results. Son requested to defer ICU transition and instead maintain in the PCU with Hospice consultation and transition of status to DNR-CC. He notes he has had a profound decline over the last year and his quality of life is significantly poor. He feels that he would benefit more from comfort measures than anything.
[2022-01-31 06:47] LABS: Ferritin 13 ng/mL (26-388); Iron 13 ug/dL (65-175); Iron Binding Capacity,Total 251 ug/dL (250-450); PERCENT IRON SATURATION 5.2 % (15.0-55.0)
[2022-01-31 06:51] LABS: ALB/GLOB Ratio 0.8 RATIO (0.9-2.4); AST(SGOT) 12 U/L (15-37); Alanine Aminotransfer ALT/SGPT 11 U/L (16-61); Albumin, Serum 2.4 g/dL (3.2-5.0); Alkaline Phosphatase 87 U/L (45-117); Anion Gap 6 (5-15); BUN 27 mg/dL (7-18); BUN/Creat Ratio 15.9 RATIO (10-20); Calcium,Total 7.8 mg/dL (8.5-10.1); Chloride 97 mmol/L (98-107); EST Glomerular Filtration Rate 42 mL/min (>60); Est Glom Filt Rate - Afr Amer 51 mL/min (>60); Estimated Creatinine Clearance 38.77 ml/min; Globulin 3.2 g/dL (2.2-4.2); Glucose 188 mg/dL (74-106); Potassium 4.8 mmol/L (3.5-5.1); Protein, Total 5.6 g/dL (6.4-8.2); Sodium Level 131 mmol/L (136-145)
[2022-01-31 07:26] LABS: Bedside Glucose 183 mg/dL (74-106)
[2022-01-31] MEDS: Ipratropium/Albuterol Sulfate 3 ML AMPUL.NEB INHALATION ×4 (07:32→18:42)
--- NOTE | 2022-01-31 09:05 | CASEMGMT ---
Discharge Senior Investigator Lala Soto/don Music Instructor faxed over updates to Rachael at [place]. Lala Latif Discharge Senior Investigator
--- NOTE | 2022-01-31 10:18 | CASEMGMT ---
Patient is from [place]. Per Nurse Practitioner Gina patient's son would like Hospice for patient. XIOMY called patient's son Camron and confirmed he would like to talk with Hospice. Camron said Hospice just called him and he is meeting with them at 4p today at the hospital. XIOMY notified COAL CHEMIST. Lesa Kline PRODUCTION BROACHER TONY
[2022-01-31] MEDS: Insulin Lispro 100 UNIT/ML INSULN.PEN SC ×3 (11:44→21:36)
--- NOTE | 2022-01-31 12:04 | PN.HOSP_ITS ---
Subjective Subjective Patient seen and examined. Patient lying in bed with BiPAP on, does not arouse upon entering the room. Objective Data Objective Data Vital Signs: Vital Signs Temp Pulse Resp BP Pulse Ox O2 Del Method O2 Flow Rate 97.5 F L 62 30 H 101/53 L 98 Bi-pap 6 01/31/22 11:00 01/31/22 11:04 01/31/22 11:04 01/31/22 11:00 01/31/22 11:04 01/31/22 11:00 01/31/22 07:00 FiO2 35 01/31/22 11:04 Oxygen Flow Rate (L/min) 6 Oxygen Delivery Method Bi-pap Weight: 250 lb 3.594 oz Body Mass Index (BMI) 35.9 Intake & Output: Intake and Output for Last 24 Hours 01/29/22 01/30/22 01/31/22 23:59 23:59 23:59 Intake Total 2421.66 / 2421.66 Balance 2421.66 / 2421.66 Lab / Micro Data Result Diagrams: 01/31/22 05:35 01/31/22 05:35 Labs: Laboratory Results - last 24 hr 01/30/22 22:55: WBC 13.8 H, RBC 3.00 L, Hgb 7.7 L, Hct 25.0 L, MCV 83.3, MCH 25.7 L, MCHC 30.8 L, RDW Std Deviation 45.6 H, RDW Coeff of James 15.0 H, Plt Count 305, MPV 9.6, Immature Gran % (Auto) 0.600, Neut % (Auto) 89.7 H, Lymph % (Auto) 3.6 L, [place] % (Auto) 5.9, Eos % (Auto) 0.1, Baso % (Auto) 0.1, Absolute Neuts (auto) 12.4 H, Absolute Lymphs (auto) 0.50 L, Nucleated RBC % 0, Anisocytosis 1+ 01/30/22 22:55: Sodium 129 L, Potassium 4.7, Chloride 91 L, Carbon Dioxide 29.0, Anion Gap 9, BUN 26 H, Creatinine 1.72 H, Estim Creat Clear Calc 40.73, Est GFR (MDRD) Af Amer 50 L, Est GFR (MDRD) Non-Af 41 L, BUN/Creatinine Ratio 15.1, Glucose 211 H, Calcium 8.6, Troponin I High Sens 10 01/30/22 22:55: B-Natriuretic Peptide 45.6 01/31/22 00:35: Urine Color Yellow, Urine Clarity Clear, Urine pH 6.0, Ur Speci fic [place] 1.010, Urine Protein 30 H, Urine Glucose (UA) Normal, Urine Ketones Negative, Urine Occult Blood 25 H, Urine Nitrite Negative, Urine Bilirubin Negative, Urine Urobilinogen Normal, Ur Leukocyte Esterase 25 H, Urine RBC 0-5 SEEN, Urine WBC 0-5 SEEN, Ur Squamous Epith Cells 0 SEEN, Urine Bacteria 0 SEEN, Urine Mucus 0 SEEN 01/31/22 01:07: Procalcitonin < 0.04 01/31/22 01:20: Troponin I High Sens 01/31/22 02:29: MRSA (PCR) POSITIVE H 01/31/22 05:35: WBC 13.9 H, RBC 2.44 L, Hgb 6.3 L, Hct 20.3 L, MCV 83.2, MCH 25.8 L, MCHC 31.0 L, RDW Std Deviation 46.7 H, RDW Coeff of James 15.2 H, Plt Count 226, MPV 9.1, Immature Gran % (Auto) 0.900, Neut % (Auto) 92.3 H, Lymph % (Auto) 3.0 L, [place] % (Auto) 3.7, Eos % (Auto) 0.0, Baso % (Auto) 0.1, Absolute Neuts (auto) 12.9 H, Absolute Lymphs (auto) 0.42 L, Nucleated RBC % 0, Anisocyt osis 1+ 01/31/22 05:35: Sodium 131 L, Potassium 4.8, Chloride 97 L, Carbon Dioxide 28.0, Anion Gap 6, BUN 27 H, Creatinine 1.70 H, Estim Creat Clear Calc 38.77, Est GFR (MDRD) Af Amer 51 L, Est GFR (MDRD) Non-Af 42 L, BUN/Creatinine Ratio 15.9, Glucose 188 H, Calcium 7.8 L, Total Bilirubin 0.30, AST 12 L, ALT 11 L, Alkaline Phosphatase 87, Total Protein 5.6 L, Albumin 2.4 L, Globulin 3.2, Albumin/Globulin Ratio 0.8 L 01/31/22 05:35: Troponin I High Sens 12 07/13/22 05:35: Iron 13 L, TIBC 251, Iron Saturation 5.2 L, Ferritin 13 L 01/31/22 06:53: POC Glucose 183 H 01/31/22 07:04: Blood Type A NEGATIVE, Antibody Screen NEGATIVE, Crossmatch See Detail Micro: Microbiology 01/31/22 00:35 Urine Catheter - Catheter Legionella Antigen - Final 01/31/22 00:35 Urine Catheter - Catheter Streptococcus pneumoniae Antigen (M - Final 01/31/22 01:30 Mucosa - Nasopharyngeal Respiratory Panel (PCR) - Final 01/30/22 23:41 Nasal Secretion SARS-CoV-2 Antigen (Rapid) - Final ABG Data ABG results: ABG 01/31/22 05:03 Specimen Type ART Sample Site L Radial pH 7.32 L Bicarbonate Actual 26.4 H Total CO2 28 Base Excess 0 O2 Saturation 97 O2 % 45 ABG pCO2 51.8 H ABG pO2 97 [place] Test Positive Respiration Rate 38 O2 Delivery Device BiPAP Vent Mode NIV Tidal Volume 478 Radiography Diagnostic Testing: Radiology Impression Chest X-Ray 01/30/22 23:00 IMPRESSION: 1. Infiltrate versus atelectasis at the lung bases with left pleural effusion 2. Cardiac pacemaker and evidence of median sternotomy.. Electronically Signed: Chito Conde DO at 23:43 EDT , Chest X-Ray 01/31/22 05:55 IMPRESSION: Stable examination. Electronically Signed: Roque Gil MD at 8:49 EDT , Physical Exam Const Orientation / Consciousness: lethargic HEENT head/scalp atraumatic and moist oral mucous membranes Eyes conjunctivae normal and no scleral icterus Neck supple Resp normal respiratory effort Effort and Inspection: symmetric chest movement and tachypneic Auscultation: diminished lung sounds Cardio regular rate, regular rhythm, S1 normal heart sound and S2 normal heart sound GI soft to palpation and non-tender Extremity normal to inspection General Extremity: edema bilateral lower extremity Details: moderate Neuro Sensorium / Orientation: lethargic Assessment & Plan Assessment/Plan (1) Pneumonia: (2) Hypotension: PLAN: Plan 1. Acute hypoxia secondary to suspected pneumonia -Patient continues to be on BiPAP and is lethargic upon evaluation. -Zosyn continued at this time and -Repeat chest x-ray this morning demonstrates stable examination 2. 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 Acute blood loss anemia with hypotension -Overnight 2 units packed red blood cells were ordered however patient's family is wanting patient to be transferred to hospice, meeting at 4 PM -Packed red blood cells held at this time 4. Chronic CHF -Status post AICD placement, interrogation ordered 5. Diabetes mellitus type 2 -ACH S blood sugars with sliding scale insulin ordered 6. CAD -P.o. medications held secondary to lethargy 7. Hypertension -Antihypertensives held secondary to hypotension 8. Chronic kidney disease stage III -BUN and creatinine consistent with baseline Discharge planning-patient will likely be appropriate for inpatient hospice unit pending discussion with family and hospice evaluation This patient was seen by Marla Mata NP-C under the supervision of Dr. Osei 12 minutes spent in clinical coordination of patient's plan of care.
[2022-01-31 12:05] LABS: Bedside Glucose 182 mg/dL (74-106)
[2022-01-31] MEDS: 0.9% Saline Lock 10 ML Syringe IV ×2 (14:41→21:53)
[2022-01-31 16:55] LABS: Bedside Glucose 173 mg/dL (74-106)
--- NOTE | 2022-01-31 17:33 | DCINST_ITS ---
Discharge Instructions Diet Discharge Diet: No restrictions Follow Up Care Test Results: Test results from this visit will be discussed in further detail at your follow- up appointment, if applicable. Discharge Plan Admission Admit Date/Time: 01/31/22 00:53 Primary Reason for Your Visit: Pneumonia, ABLA Attending Provider: Ced Osei Primary Care Provider: Vernon Mckenna Consulting Providers: Marly Tolentino ; Dede Velasco Discharge Orders/Prescriptions Prescriptions: Continued amitriptyline 150 mg Tablet 150 mg PO DAILY duloxetine [Cymbalta] 60 mg Capsule,Delayed Release(Dr/Ec) 90 mg PO DAILY cyanocobalamin (vitamin B-12) 1,000 mcg Lozenge 1,000 mcg SUBLINGUAL DAILY aspirin 81 mg Capsule 81 mg PO DAILY furosemide [Lasix] 40 mg Tablet 40 mg PO BID finasteride 5 mg Tablet 5 mg PO DAILY Eliquis 5 mg Tablet 5 mg PO BID Entresto 24-26 mg Tablet 1 tab PO BID olanzapine 20 mg Tablet 30 mg PO QHS insulin glargine [Lantus Solostar U-100 Insulin] 100 unit/mL (3 mL) Insulin Pen 12 unit SUBCUT QHS melatonin 3 mg Capsule 3 mg PO QHS potassium chloride 20 mEq Tablet Extended Release 40 meq PO DAILY metoprolol succinate 50 mg Tablet Extended Release 24 Hr 50 mg PO DAILY prazosin 5 mg Capsule 5 mg PO QPM buspirone 10 mg Tablet 20 mg PO TID fluticasone propion-salmeterol 500-50 mcg/dose Blister With Device 1 inh INHALATION BID pantoprazole 20 mg Tablet,Delayed Release (Dr/Ec) 40 mg PO DAILY Referrals / Follow Up: Vernon Mckenna MD [Primary Care Provider] - Disposition Disposition (needs filled in before D/C Order can be placed): Hospice in Medical Facility
[2022-01-31] MEDS: Vancomycin IV 1,000 MG/200 ML BAG 200 MG IV (18:13)
--- NOTE | 2022-01-31 18:13 | DS.PCM_ITS ---
Documented by User: SIENNA Telles 01/31/22 18:15 Providers Date of Admission: 01/31/22 Date of Discharge: 01/31/22 Primary Care Physician: Dr. Vernon Mckenna MD Consultations 01/31/22 06:40 Consult: Hospice / Palliative Care Routine Consulting Provider: Dede Velasco Reason for Consult: Family requesting hospice. EMERGENT Consult: No MD Notified: Yes Date Notified: 01/31/22 Time Notified: 06:40 Method of Notification: spoke with Gerry Reason For Visit: ACUTE HYPOXIA ON CHRONIC, SUSPECT PNA Diagnosis Discharge Diagnosis (1) Pneumonia: Status: Acute Code(s): J18.9 - Pneumonia, unspecified organism (2) Hypotension: Status: Acute Code(s): I95.9 - Hypotension, unspecified Plan 1. Acute hypoxia secondary to suspected pneumonia -Patient continues to be on BiPAP and is lethargic upon evaluation. -Zosyn continued at this time and -Repeat chest x-ray this morning demonstrates stable examination 2. 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 Acute blood loss anemia with hypotension -Overnight 2 units packed red blood cells were ordered however patient's family is wanting patient to be transferred to hospice, meeting at 4 PM -Packed red blood cells held at this time 4. Chronic CHF -Status post AICD placement, interrogation ordered 5. Diabetes mellitus type 2 -ACH S blood sugars with sliding scale insulin ordered 6. CAD -P.o. medications held secondary to lethargy 7. Hypertension -Antihypertensives held secondary to hypotension 8. Chronic kidney disease stage III -BUN and creatinine consistent with baseline Discharge planning-patient will likely be appropriate for inpatient hospice unit pending discussion with family and hospice evaluation This patient was seen by JOSE TellesC under the supervision of Dr. Osei 12 minutes spent in clinical coordination of patient's plan of care. Medications at Discharge Home Medications amitriptyline 150 mg tablet 150 mg PO DAILY 01/31/22 apixaban 5 mg tablet (Eliquis) 5 mg PO BID 01/31/22 aspirin 81 mg capsule 81 mg PO DAILY 01/31/22 buspirone 10 mg tablet 20 mg PO TID 01/31/22 cyanocobalamin (vitamin B-12) 1,000 mcg sublingual lozenge 1,000 mcg sublingual DAILY 01/31/22 duloxetine 60 mg capsule,delayed release (Cymbalta) 90 mg PO DAILY 01/31/22 finasteride 5 mg tablet 5 mg PO DAILY 01/31/22 fluticasone 500 mcg-salmeterol 50 mcg/dose blistr powdr for inhalation 1 inh inhalation BID 01/31/22 furosemide 40 mg tablet (Lasix) 40 mg PO BID 01/31/22 insulin glargine 100 unit/mL (3 mL) subcutaneous pen (Lantus Solostar U-100 Insulin) 12 unit subcut QHS 01/31/22 melatonin 3 mg capsule 3 mg PO QHS 01/31/22 metoprolol succinate 50 mg tablet,extended release 24 hr 50 mg PO DAILY 01/31/22 olanzapine 20 mg tablet 30 mg PO QHS 01/31/22 pantoprazole 20 mg tablet,delayed release 40 mg PO DAILY 01/31/22 potassium chloride 20 mEq tablet,extended release 40 meq PO DAILY 01/31/22 prazosin 5 mg capsule 5 mg PO QPM 01/31/22 sacubitril 24 mg-valsartan 26 mg tablet (Entresto) 1 tab PO BID 01/31/22 Hospital Course Operations None Procedures None Summary of Care Provided Minutes Spent on Discharge: 35 Hospital Course: Patient originally came in for shortness of breath. Patient was noted to have pneumonia and was subsequently started on Zosyn and vancomycin. Patient also noted to be anemic with a hemoglobin of 7.7, repeat hemoglobin this a.m. showed 6.3. When son was updated on patient's status and that he is not doing well and would likely need ICU and blood transfusion patient's son made patient DNR CC and requested hospice evaluation. Hospice met with patient and family at 4:00 today and patient is appropriate for IPU so patient will be discharged to inpatient unit at hospice house here in [place]. Physical Exam Const Orientation / Consciousness: lethargic HEENT head/scalp atraumatic and moist oral mucous membranes Eyes conjunctivae normal and no scleral icterus Neck supple Resp normal respiratory effort Effort and Inspection: symmetric chest movement and tachypneic Auscultation: diminished lung sounds Cardio regular rate, regular rhythm, S1 normal heart sound and S2 normal heart sound GI soft to palpation and non-tender Extremity normal to inspection General Extremity: edema bilateral lower extremity Details: moderate Neuro Sensorium / Orientation: lethargic Weight / BMI Weight Weight: 250 lb 3.594 oz Body Mass Index (BMI) 35.9 ABG / Lab / Microbiology Data Result Diagrams: 01/31/22 05:35 01/31/22 05:35 Laboratory: Laboratory Results - last 24 hr 01/30/22 22:55: WBC 13.8 H, RBC 3.00 L, Hgb 7.7 L, Hct 25.0 L, MCV 83.3, MCH 25. 7 L, MCHC 30.8 L, RDW Std Deviation 45.6 H, RDW Coeff of James 15.0 H, Plt Count 305, MPV 9.6, Immature Gran % (Auto) 0.600, Neut % (Auto) 89.7 H, Lymph % (Auto) 3.6 L, [place] % (Auto) 5.9, Eos % (Auto) 0.1, Baso % (Auto) 0.1, Absolute Neuts (auto) 12.4 H, Absolute Lymphs (auto) 0.50 L, Nucleated RBC % 0, Anisocytosis 1+ 01/30/22 22:55: Sodium 129 L, Potassium 4.7, Chloride 91 L, Carbon Dioxide 29.0, Anion Gap 9, BUN 26 H, Creatinine 1.72 H, Estim Creat Clear Calc 40.73, Est GFR (MDRD) Af Amer 50 L, Est GFR (MDRD) Non-Af 41 L, BUN/Creatinine Ratio 15.1, Glucose 211 H, Calcium 8.6, Troponin I High Sens 10 01/30/22 22:55: B-Natriuretic Peptide 45.6 01/31/22 00:35: Urine Color Yellow, Urine Clarity Clear, Urine pH 6.0, Ur Specific [place] 1.010, Urine Protein 30 H, Urine Glucose (UA) Normal, Urine Ketones Negative, Urine Occult Blood 25 H, Urine Nitrite Negative, Urine Bilirubin Negative, Urine Urobilinogen Normal, Ur Leukocyte Esterase 25 H, Urine RBC 0-5 SEEN, Urine WBC 0-5 SEEN, Ur Squamous Epith Cells 0 SEEN, Urine Bacteria 0 SEEN, Urine Mucus 0 SEEN 01/31/22 01:07: Procalcitonin < 0.04 01/31/22 01:20: Troponin I High Sens 01/31/22 02:29: MRSA (PCR) POSITIVE H 01/31/22 05:35: WBC 13.9 H, RBC 2.44 L, Hgb 6.3 L, Hct 20.3 L, MCV 83.2, MCH 25.8 L, MCHC 31.0 L, RDW Std Deviation 46.7 H, RDW Coeff of James 15.2 H, Plt Count 226, MPV 9.1, Immature Gran % (Auto) 0.900, Neut % (Auto) 92.3 H, Lymph % (Auto) 3.0 L, [place] % (Auto) 3.7, Eos % (Auto) 0.0, Baso % (Auto) 0.1, Absolute Neuts (auto) 12.9 H, Absolute Lymphs (auto) 0.42 L, Nucleated RBC % 0, Anisocytosis 1+ 01/31/22 05:35: Sodium 131 L, Potassium 4.8, Chloride 97 L, Carbon Dioxide 28.0, Anion Gap 6, BUN 27 H, Creatinine 1.70 H, Estim Creat Clear Calc 38.77, Est GFR (MDRD) Af Amer 51 L, Est GFR (MDRD) Non-Af 42 L, BUN/Creatinine Ratio 15.9, Glucose 188 H, Calcium 7.8 L, Total Bilirubin 0.30, AST 12 L, ALT 11 L, Alkaline Phosphatase 87, Total Protein 5.6 L, Albumin 2.4 L, Globulin 3.2, Albumin/Globulin Ratio 0.8 L 01/31/22 05:35: Troponin I High Sens 12 01/31/22 05:35: Iron 13 L, TIBC 251, Iron Saturation 5.2 L, Ferritin 13 L 01/31/22 06:53: POC Glucose 183 H 01/31/22 07:04: Blood Type A NEGATIVE, Antibody Screen NEGATIVE, Crossmatch See Detail 01/31/22 11:30: POC Glucose 182 H 01/31/22 16:30: POC Glucose 173 H Microbiology: Microbiology 01/31/22 00:35 Urine Catheter - Catheter Legionella Antigen - Final 01/31/22 00:35 Urine Catheter - Catheter Streptococcus pneumoniae Antigen (M - Final 01/31/22 01:30 Mucosa - Nasopharyngeal Respiratory Panel (PCR) - Final 01/30/22 23:41 Nasal Secretion SARS-CoV-2 Antigen (Rapid) - Final ABG: ABG 01/31/22 05:03 Specimen Type ART Sample Site L Radial pH 7.32 L Bicarbonate Actual 26.4 H Total CO2 28 Base Excess 0 O2 Saturation 97 O2 % 45 ABG pCO2 51.8 H ABG pO2 97 Carrington Test Positive Respiration Rate 38 O2 Delivery Device BiPAP Vent Mode NIV Tidal Volume 478 Radiography Diagnostic Testing: Radiology Impression Chest X-Ray 01/30/22 23:00 IMPRESSION: 1. Infiltrate versus atelectasis at the lung bases with left pleural effusion 2. Cardiac pacemaker and evidence of median sternotomy.. Electronically Signed: Chito Conde DO at 23:43 EDT , Chest X-Ray 01/31/22 05:55 IMPRESSION: Stable examination. Electronically Signed: Roque Gil MD at 8:49 EDT , D/C Instructions Discharge Diet: No restrictions Meaningful Use Info Meaningful Use Diagnoses (Choose all that apply): None applicable Discharge Plan Admission Admit Date/Time: 01/31/22 00:53 Primary Reason for Your Visit: Pneumonia, ABLA Attending Provider: Ced Osei Primary Care Provider: Vernon Mckenna Consulting Providers: Marly Tolentino ; Dede Velasco Discharge Orders/Prescriptions Prescriptions: Continued amitriptyline 150 mg Tablet 150 mg PO DAILY duloxetine [Cymbalta] 60 mg Capsule,Delayed Release(Dr/Ec) 90 mg PO DAILY cyanocobalamin (vitamin B-12) 1,000 mcg Lozenge 1,000 mcg SUBLINGUAL DAILY aspirin 81 mg Capsule 81 mg PO DAILY furosemide [Lasix] 40 mg Tablet 40 mg PO BID finasteride 5 mg Tablet 5 mg PO DAILY Eliquis 5 mg Tablet 5 mg PO BID Entresto 24-26 mg Tablet 1 tab PO BID olanzapine 20 mg Tablet 30 mg PO QHS insulin glargine [Lantus Solostar U-100 Insulin] 100 unit/mL (3 mL) Insulin Pen 12 unit SUBCUT QHS melatonin 3 mg Capsule 3 mg PO QHS potassium chloride 20 mEq Tablet Extended Release 40 meq PO DAILY metoprolol succinate 50 mg Tablet Extended Release 24 Hr 50 mg PO DAILY prazosin 5 mg Capsule 5 mg PO QPM buspirone 10 mg Tablet 20 mg PO TID fluticasone propion-salmeterol 500-50 mcg/dose Blister With Device 1 inh INHALATION BID pantoprazole 20 mg Tablet,Delayed Release (Dr/Ec) 40 mg PO DAILY Referrals / Follow Up: Vernon Mckenna MD [Primary Care Provider] - Disposition Disposition (needs filled in before D/C Order can be placed): Hospice in Medical Facility Hospital Course Summary of Care Provided Hospital Course: This patient was seen in conjunction with SIENNA Telles . I have independently interviewed and examined the patient and reviewed pertinent historical, laboratory, and other data. Please refer to SIENNA Telles note for details of this patient's presentation, findings, and recommendations. I have reviewed SIENNA Telles note and concur with documented findings. In brief, patient is 76-year-old gentleman with multiple comorbidities admitted with progressive shortness of breath. An assessment of acute on chronic hypoxic respiratory failure secondary to combination of pneumonia which was suspected to be aspiration pneumonia COPD with acute exacerbation as well as congestive heart failure made. Patient was admitted to monitored bed initially managed with noninvasive ventilation with BiPAP. Patient clinical condition continued to deteriorate however family requested no further aggressive measures CODE STATUS was changed to DNR CC consultation was placed to the hospice team patient was transferred for inpatient hospice management Hospital course as documented above Total time spent by myself and the advanced practice practitioner evaluating patient, reviewing labs, subsequent management decisions, discussion with patient as well as other providers 40 minutes ( 25 of which was spent by myself) Documented by User: Dr. Ced Osei MD 02/01/22 07:10 Providers Date of Admission: 01/31/22 Reason For Visit: ACUTE HYPOXIA ON CHRONIC, SUSPECT PNA Diagnosis Discharge Diagnosis (1) Pneumonia: Status: Acute Code(s): J18.9 - Pneumonia, unspecified organism (2) Hypotension: Status: Acute Code(s): I95.9 - Hypotension, unspecified Medications at Discharge Home Medications amitriptyline 150 mg tablet 150 mg PO DAILY 01/31/22 apixaban 5 mg tablet (Eliquis) 5 mg PO BID 01/31/22 aspirin 81 mg capsule 81 mg PO DAILY 01/31/22 buspirone 10 mg tablet 20 mg PO TID 01/31/22 cyanocobalamin (vitamin B-12) 1,000 mcg sublingual lozenge 1,000 mcg sublingual DAILY 01/31/22 duloxetine 60 mg capsule,delayed release (Cymbalta) 90 mg PO DAILY 01/31/22 finasteride 5 mg tablet 5 mg PO DAILY 01/31/22 fluticasone 500 mcg-salmeterol 50 mcg/dose blistr powdr for inhalation 1 inh inhalation BID 01/31/22 furosemide 40 mg tablet (Lasix) 40 mg PO BID 01/31/22 insulin glargine 100 unit/mL (3 mL) subcutaneous pen (Lantus Solostar U-100 Insu krystyna) 12 unit subcut QHS 01/31/22 melatonin 3 mg capsule 3 mg PO QHS 01/31/22 metoprolol succinate 50 mg tablet,extended release 24 hr 50 mg PO DAILY 01/31/22 olanzapine 20 mg tablet 30 mg PO QHS 01/31/22 pantoprazole 20 mg tablet,delayed release 40 mg PO DAILY 01/31/22 potassium chloride 20 mEq tablet,extended release 40 meq PO DAILY 01/31/22 prazosin 5 mg capsule 5 mg PO QPM 01/31/22 sacubitril 24 mg-valsartan 26 mg tablet (Entresto) 1 tab PO BID 01/31/22 Hospital Course Operations None Procedures None Summary of Care Provided Minutes Spent on Discharge: 40 ABG / Lab / Microbiology Data Result Diagrams: 01/31/22 05:35 01/31/22 05:35 Discharge Plan Admission Admit Date/Time: 01/31/22 00:53 Primary Reason for Your Visit: Pneumonia, ABLA Attending Provider: Ced Osei Primary Care Provider: Vernon Mckenna Consulting Providers: Marly Tolentino ; Dede Velasco Discharge Orders/Prescriptions Prescriptions: Continued amitriptyline 150 mg Tablet 150 mg PO DAILY duloxetine [Cymbalta] 60 mg Capsule,Delayed Release(Dr/Ec) 90 mg PO DAILY cyanocobalamin (vitamin B-12) 1,000 mcg Lozenge 1,000 mcg SUBLINGUAL DAILY aspirin 81 mg Capsule 81 mg PO DAILY furosemide [Lasix] 40 mg Tablet 40 mg PO BID finasteride 5 mg Tablet 5 mg PO DAILY Eliquis 5 mg Tablet 5 mg PO BID Entresto 24-26 mg Tablet 1 tab PO BID olanzapine 20 mg Tablet 30 mg PO QHS insulin glargine [Lantus Solostar U-100 Insulin] 100 unit/mL (3 mL) Insulin Pen 12 unit SUBCUT QHS melatonin 3 mg Capsule 3 mg PO QHS potassium chloride 20 mEq Tablet Extended Release 40 meq PO DAILY metoprolol succinate 50 mg Tablet Extended Release 24 Hr 50 mg PO DAILY prazosin 5 mg Capsule 5 mg PO QPM buspirone 10 mg Tablet 20 mg PO TID fluticasone propion-salmeterol 500-50 mcg/dose Blister With Device 1 inh INHALATION BID pantoprazole 20 mg Tablet,Delayed Release (Dr/Ec) 40 mg PO DAILY Referrals / Follow Up: Vernon Mckenna MD [Primary Care Provider] - Disposition Disposition (needs filled in before D/C Order can be placed): Hospice in Medical Facility Charges/Coding Visit Charges Inpatient E&M: 94002 Disch Hosp Hospital Course Consultations Consultations: Consultations 01/31/22 06:40 Consult: Hospice / Palliative Care Routine Consulting Provider: Dede Velasco Reason for Consult: Family requesting hospice. EMERGENT Consult: No MD Notified: Yes Date Notified: 01/31/22 Time Notified: 06:40 Method of Notification: spoke with Gerry Vigil None Procedures Procedures: None Summary of Care Provided Hospital Course: This patient was seen in conjunction with SIENNA Telles . I have independently interviewed and examined the patient and reviewed pertinent historical, laboratory, and other data. Please refer to SIENNA Telles note for details of this patient's presentation, findings, and recommendations. I have reviewed SIENNA Telles note and concur with documented kenji gs. In brief, patient is 76-year-old gentleman with multiple comorbidities admitted with progressive shortness of breath. An assessment of acute on chronic hypoxic respiratory failure secondary to combination of pneumonia which was suspected to be aspiration pneumonia COPD with acute exacerbation as well as congestive heart failure made. Patient was admitted to monitored bed initially managed with noninvasive ventilation with BiPAP. Patient clinical condition continued to deteriorate however family requested no further aggressive measures CODE STATUS was changed to DNR CC consultation was placed to the hospice team patient was transferred for inpatient hospice management Hospital course as documented above Total time spent by myself and the advanced practice practitioner evaluating p atient, reviewing labs, subsequent management decisions, discussion with patient as well as other providers 40 minutes ( 25 of which was spent by myself)
[2022-01-31] MEDS: Insulin Glargine-YFGN 100 UNIT/ML Pen 12 UNIT SC (21:35)
[2022-01-31 22:21] LABS: Bedside Glucose 211 mg/dL (74-106)
[2022-02-01] VITALS (24 sets, daily range): BP systolic 97–139; BP diastolic 52–70; PULSE 60–99; RESP 12–25; TEMP 36.2–36.9; O2SAT 93–100
[2022-02-01] MEDS: 0.9% Normal Saline 1,000 ML 100 ML IV (00:26)
[2022-02-01] MEDS: busPIRone 5 MG Tablet 20 MG PO ×3 (06:08→22:30)
[2022-02-01] MEDS: Vancomycin IV 1,000 MG/200 ML BAG 200 MG IV ×2 (06:21→18:47)
[2022-02-01] MEDS: Ipratropium/Albuterol Sulfate 3 ML AMPUL.NEB INHALATION ×4 (07:38→19:25)
[2022-02-01] MEDS: Potassium Chloride Oral Tablet 20 MEQ 40 MEQ PO (08:45)
[2022-02-01] MEDS: DULoxetine Hcl 30 MG Capsule 90 MG PO (08:46)
[2022-02-01] MEDS: Cyanocobalamin 500 MCG Tablet 1000 MCG PO (08:46)
[2022-02-01] MEDS: Finasteride 5 MG Tablet PO (08:46)
[2022-02-01] MEDS: LORazepam 2 MG/ML Syringe 1 MG IV (09:40)
[2022-02-01] MEDS: Insulin Lispro 100 UNIT/ML INSULN.PEN SC ×3 (11:15→22:35)
[2022-02-01 11:35] LABS: Bedside Glucose 174 mg/dL (74-106)
--- NOTE | 2022-02-01 11:39 | PCM.PN.HOSP ---
Documented by User: Mary Bernstein NP, [employer] 02/01/22 12:19 Subjective Subjective Patient seen and examined. Alert and oriented. Reports cough. Denies significant shortness of breath. Oxygen now stable on 6 L nasal cannula. Objective Data Objective Data Vital Signs: Vital Signs Temp Pulse Resp BP Pulse Ox O2 Del Method O2 Flow Rate 97.9 F 88 18 117/61 100 Nasal Cannula 6 02/01/22 10:32 02/01/22 11:05 02/01/22 11:05 02/01/22 10:32 02/01/22 11:05 02/01/22 11:05 02/01/22 11:05 FiO2 30 02/01/22 07:40 Oxygen Flow Rate (L/min) 6 Oxygen Delivery Method Nasal Cannula Weight: 251 lb 12.286 oz Body Mass Index (BMI) 35.9 Intake & Output: Intake and Output for Last 24 Hours 01/30/22 01/31/22 02/01/22 23:59 23:59 23:59 Intake Total 3548.33 / 3548.33 2373.34 / 2373.34 Output Total 1400 / 1400 Balance 3548.33 / 3548.33 973.34 / 973.34 Lab / Micro Data Result Diagrams: 01/31/22 05:35 01/31/22 05:35 Labs: Laboratory Results - last 24 hr 01/31/22 07:04: Blood Type A NEGATIVE, Antibody Screen NEGATIVE, Crossmatch See Detail 01/31/22 11:30: POC Glucose 182 H 01/31/22 16:30: POC Glucose 173 H 01/31/22 21:31: POC Glucose 211 H 02/01/22 11:14: POC Glucose 174 H Micro: Microbiology 01/31/22 00:35 Urine Catheter - Catheter Legionella Antigen - Final 01/31/22 00:35 Urine Catheter - Catheter Streptococcus pneumoniae Antigen (M - Final 01/31/22 01:30 Mucosa - Nasopharyngeal Respiratory Panel (PCR) - Final 01/30/22 23:41 Nasal Secretion SARS-CoV-2 Antigen (Rapid) - Final Physical Exam Const alert and oriented x3 HEENT normocephalic Mouth: dry mucous membranes Eyes PERRL, EOMs intact bilaterally and conjunctivae normal Neck no lymphadenopathy Resp Auscultation: rhonchi and diminished lung sounds Cardio regular rate, regular rhythm and no murmurs Cardio Narrative: AV paced Peripheral Pulses: pulses 2+ throughout GI normal to inspection, nondistended, normoactive bowel sounds, non-tender and non-distended Extremity normal to inspection Skin no rashes or lesions noted Lesions: no lesions Rashes: no rashes Trauma: no lacerations or abrasions Neuro CN's II-XII intact bilaterally, no focal motor deficits, no sensory deficits noted and deep tendon reflexes 2+ bilaterally Psych mental status grossly normal and affect normal Assessment & Plan Assessment/Plan (1) Pneumonia: (2) Hypoxia: PLAN: Plan 1. Acute on chronic hypoxic respiratory failure secondary to suspected pneumonia, possible aspiration pneumonia and COPD exacerbation-on 3 L nasal cannula at baseline. Previously requiring BiPAP. Oxygen now stable on 6 L nasal cannula. Continue supplemental oxygen to maintain O2 at or above 90%. 2. Left sided pneumonia, concerning for aspiration pneumonia-IV Zosyn and IV vancomycin. Speech therapy consulted. 3. Acute exacerbation of COPD-IV Solu-Medrol. Albuterol and DuoNeb aerosols. 4. Acute blood loss anemia-2 units PRBC ordered. IV PPI. Trend CBC. Labs consistent with iron deficiency as well. Oral iron supplementation. Family declines any aggressive GI work-up. 5. Acute hypotension-secondary to hypovolemia/blood loss. Improved from prior. Treatment per above. Hold antihypertensive regimen. 6. Chronic kidney disease stage IIIb-at baseline, trend BMP. 7. Chronic heart failure with reduced ejection fraction/ischemic cardiomyopathy/CAD- s/p AICD. Continue medical management. 8. Chronic atrial fibrillation-Eliquis on hold. Continue metoprolol. 9. Hypertension-blood pressure regimen on hold due to hypotension. Resume when improved. 10. Type 2 diabetes [id number] with sliding scale insulin. Continue home insulin regimen. 11. GERD-IV PPI as noted above. 12. BPH-on finasteride. 13. Anxiety/depression, bipolar disorder-on BuSpar, duloxetine, olanzapine. 14. History of colon CA/lung CA-considered in remission. DVT prophylaxis-SCDs, Eliquis on hold Discharge planning: Family requesting return to SNF with hospice at discharge. This patient was seen by SIENNA Bonilla under the supervision of Dr. Osei. Documented by User: Dr. Ced Osei MD 02/01/22 15:36 Objective Data Lab / Micro Data Result Diagrams: 01/31/22 05:35 01/31/22 05:35 Assessment & Plan Assessment/Plan (1) Pneumonia: (2) Hypoxia: Addt'l Comments This patient was seen in conjunction with SIENNA Bonilla . I have independently interviewed and examined the patient and reviewed pertinent historical, laboratory, and other data. Please refer to SIENNA Bonilla note for details of this patient's presentation, findings, and recommendations. I have reviewed SIENNA Bonilla note and concur with documented findings. In brief, patient Patient is a 76-year-old gentleman admitted with progressive shortness of breath. Plan was for patient to have been transferred to inpatient hospice unit however patient was found to be more awake and alert this a.m. and elected not to proceed with inpatient hospice transfer for now Physical Examination: GENERAL: Patient is frail looking HEENT: Atraumatic; EYES; Anicteric, Normal Conjunctiva NECK; supple, normal thyroid, RESPIRATORY: Diminished to auscultation CARDIOVASCULAR:? Regular S1 S2, GI:? soft, normoactive bowel sounds, : No Renal angle tenderness; EXTREMITIES: Bipedal edema, no clubbing, MUSCULOSKELETAL:? no muscle wasting NEURO:? Awake;? no lateralizing signs. SKIN:? No Rash PSYCH; Flat? affect Assessment: 1. Acute on chronic hypoxic respiratory failure 2. Acute on chronic congestive heart failure with reduced ejection fraction 3. Suspected aspiration pneumonia 4. COPD with acute exacerbation 5. Anemia due to combination of anemia of chronic disorder and suspected acute blood loss from GI bleed 6. Chronic kidney disease stage IIIb 7. Ischemic cardiomyopathy status post AICD placement 8. Chronic A. fib on systemic anticoagulation with Eliquis 9. Essential hypertension antihypertensives held due to hypotension 10. Diabetes mellitus type 2 11. BPH 12. History of colon CA currently remission 12. Coronary artery disease status post CABG 13. History of lung CA 14. Depression with anxiety Recommendations: 1.? I have discussed the results of my overview and impressions with the patient 2.? Options for management were reviewed Total time spent by myself and the advanced practice practitioner evaluating patient, reviewing labs, subsequent management decisions, discussion with patient as well as other providers 40 minutes ( 25 of which was spent by myself) Charges/Coding Visit Charges Inpatient E&M: 00627 Subs Hosp L3
[2022-02-01 11:50] LABS: Bedside Glucose 137 mg/dL (74-106)
[2022-02-01] MEDS: Ferrous Sulfate 325 MG Tablet PO ×2 (12:17→17:11)
--- NOTE | 2022-02-01 13:02 | CASEMGMT ---
XIOMY was informed that patient no longer qualifies for the Inpatient Hospice Unit. CURRICULUM WRITER Mary spoke with patient's son and it was decided that patient will return to [facility]. XIOMY spoke with Rachael at [facility] and she confirmed this would be fine. Patient has Medicaid so his room and board will be covered at [facility]. XIOMY called patient's son Camron and confirmed the plan will be for patient to return to [facility]. XIOMY also called Kim with Hospice and let her know this as well. Plan: d/c back to [facility] under Hospice. Lesa Kline [employer]OUD [employer]OMATION TESTER TONY
[2022-02-01] MEDS: Furosemide 40 MG/4 ML Vial IV (13:45)
[2022-02-01] MEDS: 0.9% Saline Lock 10 ML Syringe IV ×2 (13:46→22:51)
[2022-02-01] MEDS: Metoprolol(XL)Succ 50 MG Tablet PO (13:56)
[2022-02-01 17:38] LABS: Mucous, Urine 0 SEEN /hpf (<or=2+); Squamous Epithelial Cells - UA 0 SEEN /hpf (0-5); White Blood Cells 0 SEEN /hpf (0-5)
[2022-02-01 17:44] LABS: Color, Urine Straw (Yellow); Glucose, Dipstick Normal (Normal); Ketone-Dipstick Negative (Negative); Leukocyte Esterase-Dipstick Negative /ul (Negative); Nitrite-Dipstick Negative (Negative); Occult Blood-Urine 10 /ul (Negative); Protein-Dipstick Negative (Negative); Specific Gravity, Urine 1.015 (1.002-1.030); Urine Bilirubin Dipstick Negative (Negative); Urine Clarity Clear (Clear); Urine Urobilinogen Normal (Normal)
[2022-02-01 17:50] LABS: Bedside Glucose 170 mg/dL (74-106)
[2022-02-01 17:57] LABS: Bacteria RARE /hpf (None Seen); Red Blood Cells-Urine 0-5 SEEN /hpf (0-5)
[2022-02-01 19:00] LABS: Hematocrit 27.8 % (40-54); Hemoglobin 8.9 g/dL (13.0-16.5)
[2022-02-01 20:01] LABS: Vancomycin, Trough Level 21.1 ug/mL (5.0-15.0)
--- NOTE | 2022-02-01 20:43 | PCM.RX.CS ---
Consult Pharmacy has been consulted to manage selected antiobiotic: Vancomycin Type of Consult: Follow-up Prior Doses of Antibiotics Received/Current Regimen: Medications Vancomycin HCl (Vancomycin) 1,000 mg in 200 mls @ 200 mls/hr IV Q12H HOWARD Last Admin: 02/01/22 18:47 Dose: 200 mls/hr Labs: Sodium 131 mmol/L (136-145) L 01/31/22 05:35 Potassium 4.8 mmol/L (3.5-5.1) 01/31/22 05:35 Chloride 97 mmol/L (98-107) L 01/31/22 05:35 Carbon Dioxide 28.0 mmol/L (21.0-32.0) 01/31/22 05:35 Anion Gap 6 (5-15) 01/31/22 05:35 BUN 27 mg/dL (7-18) H 01/31/22 05:35 Creatinine 1.70 mg/dL (0.70-1.30) H 01/31/22 05:35 Est GFR (MDRD) Af Amer 51 mL/min (>60) L 01/31/22 05:35 Est GFR (MDRD) Non-Af 42 mL/min (>60) L 01/31/22 05:35 BUN/Creatinine Ratio 15.9 RATIO (10-20) 01/31/22 05:35 Glucose 188 mg/dL (74-106) H 01/31/22 05:35 Vancomycin Trough 21.1 ug/mL (5.0-15.0) H 02/01/22 18:30 Microbiology: Microbiology 01/31/22 00:35 Urine Catheter - Catheter Legionella Antigen - Final 01/31/22 00:35 Urine Catheter - Catheter Streptococcus pneumoniae Antigen (M - Final 01/31/22 01:30 Mucosa - Nasopharyngeal Respiratory Panel (PCR) - Final 01/30/22 23:41 Nasal Secretion SARS-CoV-2 Antigen (Rapid) - Final Goal Trough: 15-20 mcg/mL Pharmacy Plan for Drug Dosing: Trough above goal. Reduce to 750mg IV q12h and recheck in 48h. Pharmacy Service will continue to monitor and adjust dosing as required. Follow-Up Labs: Trough Vancomycin - 02/03 @ 0630
[2022-02-01] MEDS: Amitriptyline 100 MG Tablet 150 MG PO (22:34)
[2022-02-01] MEDS: Insulin Glargine-YFGN 100 UNIT/ML Pen 12 UNIT SC (22:36)
[2022-02-01] MEDS: MELATONIN 3 MG TABLET PO (22:37)
[2022-02-01] MEDS: OLANZapine 10 MG Tablet 30 MG PO (22:38)
[2022-02-01 23:16] LABS: Bedside Glucose 171 mg/dL (74-106)
[2022-02-02] VITALS (11 sets, daily range): BP systolic 120–136; BP diastolic 53–98; PULSE 60–74; RESP 12–25; TEMP 36.4–36.7; O2SAT 94–99
[2022-02-02 04:36] LABS: Absolute Lymphocyte Count 0.61 X10^3/uL (0.83-4.51); Absolute Neutrophil Count 7.4 X10^3/uL (2.0-7.7); Hematocrit 28.9 % (40-54); Hemoglobin 8.9 g/dL (13.0-16.5); Lymphocyte # 0.61 X10^3/ul (0.83-4.51); Lymphocyte % 7.3 % (19-41); Mean Corp Hgb Conc 30.8 g/dL (32-36); Mean Corpuscular Hgb 26.2 pg (27.0-32.0); Mean Platelet Vol. 9.7 fl (6.2-12.0); Monocyte% 3.6 % (0-10); NRBC Flagged by Analyzer 0 % (0-5); Neutrophil # 7.35 X10^3/uL (2.7-7.7); Neutrophil % 88.3 % (47-70); Platelet Count 281 K/mm3 (150-450); RBC Distribution Width CV 15.2 % (11.6-14.6); White Blood Count 8.3 K/mm3 (4.4-11.0)
[2022-02-02 04:55] LABS: Anion Gap 6 (5-15); BUN 29 mg/dL (7-18); BUN/Creat Ratio 21.2 RATIO (10-20); Calcium,Total 8.4 mg/dL (8.5-10.1); Chloride 102 mmol/L (98-107); Creatinine, Serum 1.37 mg/dL (0.70-1.30); EST Glomerular Filtration Rate 54 mL/min (>60); Est Glom Filt Rate - Afr Amer 65 mL/min (>60); Glucose 159 mg/dL (74-106); Potassium 4.3 mmol/L (3.5-5.1); Sodium Level 135 mmol/L (136-145)
[2022-02-02] MEDS: busPIRone 5 MG Tablet 20 MG PO ×2 (05:25→13:28)
[2022-02-02] MEDS: Insulin Lispro 100 UNIT/ML INSULN.PEN SC (06:23)
[2022-02-02 06:46] LABS: Bedside Glucose 157 mg/dL (74-106)
[2022-02-02] MEDS: Ipratropium/Albuterol Sulfate 3 ML AMPUL.NEB INHALATION ×2 (07:35→12:10)
[2022-02-02] MEDS: Ferrous Sulfate 325 MG Tablet PO ×2 (08:58→11:48)
[2022-02-02] MEDS: DULoxetine Hcl 30 MG Capsule 90 MG PO (08:58)
[2022-02-02] MEDS: Metoprolol(XL)Succ 50 MG Tablet PO (08:59)
[2022-02-02] MEDS: Finasteride 5 MG Tablet PO (09:00)
[2022-02-02] MEDS: Potassium Chloride Oral Tablet 20 MEQ 40 MEQ PO (09:00)
[2022-02-02] MEDS: Cyanocobalamin 500 MCG Tablet 1000 MCG PO (09:00)
[2022-02-02] MEDS: Furosemide 40 MG Tablet PO (09:23)
--- NOTE | 2022-02-02 10:39 | PCM.TXEXTCAR ---
Diet Diet Order/Speech Therapy: 02/01/22 17:14 Diet: Cardiac - Heart Healthy Is pt able to select menu?: No Routine Orders/Code Status Enema Type: Fleetz Enema Frequency: Daily PRN Suppository Type: Dulcolax 10mg Suppository Frequency: Daily PRN O2 Liters per Minute: 3 O2 Frequency: Continuous Keep PO Greater than or Equal to (%): 90 Code Status: DNRCC Problem/Diagnosis (1) Pneumonia: Status: Acute Code(s): J18.9 - Pneumonia, unspecified organism (2) Hypoxia: Status: Acute Code(s): R09.02 - Hypoxemia Plan 1. Acute on chronic hypoxic respiratory failure secondary to suspected pneumonia, possible aspiration pneumonia and COPD exacerbation-on 3 L nasal cannula at baseline. Previously requiring BiPAP. Oxygen now stable on 3 L nasal cannula. Continue supplemental oxygen to maintain O2 at or above 90%. 2. Left sided pneumonia, concerning for aspiration pneumonia-IV Zosyn and IV vancomycin during admission. Augmentin at discharge to complete course. Speech therapy consulted. 3. Acute exacerbation of COPD-IV Solu-Medrol during admission, transition to prednisone taper. Albuterol and DuoNeb aerosols. 4. Acute blood loss anemia- s/p 2 units PRBC ordered. Labs consistent with iron deficiency as well. Oral iron supplementation. Family declines any aggressive GI work-up. Continue PPI twice daily. 5. Acute hypotension-secondary to hypovolemia/blood loss. Improved following treatment per above. Hold antihypertensive regimen. 6. Chronic kidney disease stage IIIb-at baseline, trend BMP. 7. Chronic heart failure with reduced ejection fraction/ischemic cardiomyopathy/CAD- s/p AICD. Continue medical management. 8. Chronic atrial fibrillation-Eliquis on hold. Continue metoprolol. 9. Hypertension-blood pressure regimen on hold due to hypotension. Resume at discharge. 10. Type 2 diabetes uinciqvf-Gwkf-Ikamf with sliding scale insulin. Continue home insulin regimen. 11. GERD-PPI as noted above. 12. BPH-on finasteride. 13. Anxiety/depression, bipolar disorder-on BuSpar, duloxetine, olanzapine. 14. History of colon CA/lung CA-considered in remission. Plan to return to SNF with hospice services. Transition to DNR CC CODE STATUS. Allergies/Procedures Done in Hospital Allergies lithium Allergy (Verified 01/30/22 22:46) PT UNSURE OF REACTION Procedures: None Type of Care/Length of Stay Estimated LOS: More Than 30 Days Type of Care Needed: Intermediate Rehab Potential: Poor Prognosis: Poor Additional Orders/Day of Discharge H&P will serve as current which was dated: 01/31/22 Day of Discharge: 02/02/22 Dietary and Speech Recommendations Dietitian Recommendations/Changes: ADAT to Regular diet when medically able due to poor PO intakes and likely hospice. Discharge Plan Admission Admit Date/Time: 01/31/22 00:53 Primary Reason for Your Visit: Pneumonia, anemia Attending Provider: Ced Osei Primary Care Provider: Vernon Mckenna Consulting Providers: Marly Tolentino ; Dede Velasco Instructions Additional Instructions / Restrictions: SNF with hospice. Discharge Orders/Prescriptions Prescriptions: New ferrous sulfate [FeroSul] 325 mg (65 mg iron) Tablet 325 mg PO TIDCM 30 Days Qty: 90 0RF amoxicillin-pot clavulanate 875-125 mg Tablet 875 mg PO BID 4 Days Qty: 7 0RF prednisone 20 mg tablet 40 mg PO DAILY 5 Days Qty: 10 0RF Continued amitriptyline 150 mg Tablet 150 mg PO DAILY duloxetine [Cymbalta] 60 mg Capsule,Delayed Release(Dr/Ec) 90 mg PO DAILY cyanocobalamin (vitamin B-12) 1,000 mcg Lozenge 1,000 mcg SUBLINGUAL DAILY furosemide [Lasix] 40 mg Tablet 40 mg PO BID finasteride 5 mg Tablet 5 mg PO DAILY Entresto 24-26 mg Tablet 1 tab PO BID olanzapine 20 mg Tablet 30 mg PO QHS insulin glargine [Lantus Solostar U-100 Insulin] 100 unit/mL (3 mL) Insulin Pen 12 unit SUBCUT QHS melatonin 3 mg Capsule 3 mg PO QHS potassium chloride 20 mEq Tablet Extended Release 40 meq PO DAILY metoprolol succinate 50 mg Tablet Extended Release 24 Hr 50 mg PO DAILY prazosin 5 mg Capsule 5 mg PO QPM buspirone 10 mg Tablet 20 mg PO TID fluticasone propion-salmeterol 500-50 mcg/dose Blister With Device 1 inh INHALATION BID Changed pantoprazole 20 mg Tablet,Delayed Release (Dr/Ec) 40 mg PO BID 30 Days Qty: 120 0RF Held aspirin 81 mg Capsule 81 mg PO DAILY Hold Instructions: Resume on 02/16/22. Eliquis 5 mg Tablet 5 mg PO BID Hold Instructions: Resume on 02/16/22. Referrals / Follow Up: Vernon Mckenna MD [Primary Care Provider] - See Referral Note (As needed) Disposition Disposition (needs filled in before D/C Order can be placed): Group Home Facility
--- NOTE | 2022-02-02 10:55 | PCM.DC.SUM ---
Documented by User: Mary Bernstein NP, COMP FIELD CASE MANAGER-C 02/02/22 10:58 Providers Date of Admission: 01/31/22 Date of Discharge: 02/02/22 Primary Care Physician: Dr. Vernon Mckenna MD Consultations 01/31/22 06:40 Consult: Hospice / Palliative Care Routine Consulting Provider: Dede Velasco Reason for Consult: Family requesting hospice. EMERGENT Consult: No MD Notified: Yes Date Notified: 01/31/22 Time Notified: 06:40 Method of Notification: spoke with Gerry Reason For Visit: ACUTE HYPOXIA ON CHRONIC, SUSPECT PNA Diagnosis Discharge Diagnosis (1) Pneumonia: Status: Acute Code(s): J18.9 - Pneumonia, unspecified organism (2) Hypoxia: Status: Acute Code(s): R09.02 - Hypoxemia Plan 1. Acute on chronic hypoxic respiratory failure secondary to suspected pneumonia, possible aspiration pneumonia and COPD exacerbation-on 3 L nasal cannula at baseline. Previously requiring BiPAP. Oxygen now stable on 3 L nasal cannula. Continue supplemental oxygen to maintain O2 at or above 90%. 2. Left sided pneumonia, concerning for aspiration pneumonia-IV Zosyn and IV vancomycin during admission. Augmentin at discharge to complete course. Speech therapy consulted. 3. Acute exacerbation of COPD-IV Solu-Medrol during admission, transition to prednisone taper. Albuterol and DuoNeb aerosols. 4. Acute blood loss anemia- s/p 2 units PRBC ordered. Labs consistent with iron deficiency as well. Oral iron supplementation. Family declines any aggressive GI work-up. Continue PPI twice daily. 5. Acute hypotension-secondary to hypovolemia/blood loss. Improved following treatment per above. Hold antihypertensive regimen. 6. Chronic kidney disease stage IIIb-at baseline, trend BMP. 7. Chronic heart failure with reduced ejection fraction/ischemic cardiomyopathy/CAD- s/p AICD. Continue medical management. 8. Chronic atrial fibrillation-Eliquis on hold. Continue metoprolol. 9. Hypertension-blood pressure regimen on hold due to hypotension. Resume at discharge. 10. Type 2 diabetes [id number]-Acru-Hmiqb with sliding scale insulin. Continue home insulin regimen. 11. GERD-PPI as noted above. 12. BPH-on finasteride. 13. Anxiety/depression, bipolar disorder-on BuSpar, duloxetine, olanzapine. 14. History of colon CA/lung CA-considered in remission. Plan to return to SNF with hospice services. Transition to DNR CC CODE STATUS. Medications at Discharge Home Medications amitriptyline 150 mg tablet 150 mg PO DAILY 01/31/22 apixaban 5 mg tablet (Eliquis) 5 mg PO BID 01/31/22 aspirin 81 mg capsule 81 mg PO DAILY 01/31/22 buspirone 10 mg tablet 20 mg PO TID 01/31/22 cyanocobalamin (vitamin B-12) 1,000 mcg sublingual lozenge 1,000 mcg sublingual DAILY 01/31/22 duloxetine 60 mg capsule,delayed release (Cymbalta) 90 mg PO DAILY 01/31/22 finasteride 5 mg tablet 5 mg PO DAILY 01/31/22 fluticasone 500 mcg-salmeterol 50 mcg/dose blistr powdr for inhalation 1 inh inhalation BID 01/31/22 furosemide 40 mg tablet (Lasix) 40 mg PO BID 01/31/22 insulin glargine 100 unit/mL (3 mL) subcutaneous pen (Lantus Solostar U-100 Insulin) 12 unit subcut QHS 01/31/22 melatonin 3 mg capsule 3 mg PO QHS 01/31/22 metoprolol succinate 50 mg tablet,extended release 24 hr 50 mg PO DAILY 01/31/22 olanzapine 20 mg tablet 30 mg PO QHS 01/31/22 potassium chloride 20 mEq tablet,extended release 40 meq PO DAILY 01/31/22 prazosin 5 mg capsule 5 mg PO QPM 01/31/22 sacubitril 24 mg-valsartan 26 mg tablet (Entresto) 1 tab PO BID 01/31/22 amoxicillin 875 mg-potassium clavulanate 125 mg tablet 875 mg PO BID 4 days #7 tabs 02/02/22 ferrous sulfate 325 mg (65 mg iron) tablet (FeroSul) 325 mg PO TIDCM 30 days #90 tabs 02/02/22 pantoprazole 20 mg tablet,delayed release 40 mg PO BID 30 days #120 tabs 02/02/22 prednisone 20 mg tablet 40 mg PO DAILY 5 days #10 tabs 02/02/22 Hospital Course Operations None Procedures None Summary of Care Provided Hospital Course: Patient is a 76-year-old male admitted 01/31/2022 due to cough and dyspnea. 1.? Acute on chronic hypoxic respiratory failure secondary to suspected pneumonia, possible aspiration pneumonia and COPD exacerbation-on 3 L nasal cannula at baseline.? Previously requiring BiPAP.? Oxygen now stable on 3 L nasal cannula.? Continue supplemental oxygen to maintain O2 at or above 90%. Family and patient amenable to hospice at SNF. 2.? Left sided pneumonia, concerning for aspiration pneumonia-IV Zosyn and IV vancomycin during admission.? Augmentin at discharge to complete course.? 3. Acute exacerbation of COPD-IV Solu-Medrol during admission, transition to prednisone burst. 4. Acute blood loss anemia- s/p 2 units PRBC ordered.? Labs consistent with iron deficiency as well.? Oral iron supplementation.? Family declines any aggressive GI work-up.? Continue PPI twice daily. 5. Acute hypotension-secondary to hypovolemia/blood loss. Improved following treatment per above. 6. Chronic kidney disease stage IIIb-at baseline. 7. Chronic heart failure with reduced ejection fraction/ischemic cardiomyopathy/CAD- s/p AICD. Continue medical management. 8. Chronic atrial fibrillation-Eliquis on hold.? Continue metoprolol. 9. Hypertension-blood pressure regimen on hold due to hypotension.? Resume at discharge. 10. Type 2 diabetes mellitus-continue home regimen. 11. GERD-PPI as noted above. 12. BPH-on finasteride. 13. Anxiety/depression, bipolar disorder-on BuSpar, duloxetine, olanzapine. 14. History of colon CA/lung CA-considered in remission. Physical Exam Const alert and oriented x3 HEENT normocephalic Mouth: dry mucous membranes Eyes PERRL, EOMs intact bilaterally and conjunctivae normal Neck no lymphadenopathy Resp Auscultation: rhonchi and diminished lung sounds Cardio regular rate, regular rhythm and no murmurs Cardio Narrative: AV paced Peripheral Pulses: pulses 2+ throughout GI normal to inspection, nondistended, normoactive bowel sounds, non-tender and non-distended Extremity normal to inspection Skin no rashes or lesions noted Lesions: no lesions Rashes: no rashes Trauma: no lacerations or abrasions Neuro CN's II-XII intact bilaterally, no focal motor deficits, no sensory deficits noted and deep tendon reflexes 2+ bilaterally Psych mental status grossly normal and affect normal Patient seen and examined prior to discharge. Physical assessment as noted above. Return to SNF at discharge with hospice services. This patient was seen by SIENNA Bonilla under the supervision of Dr. Osei. Weight / BMI Weight Weight: 256 lb 2.834 oz Body Mass Index (BMI) 35.9 ABG / Lab / Microbiology Data Result Diagrams: 02/02/22 03:37 02/02/22 03:37 Laboratory: Laboratory Results - last 24 hr 01/31/22 07:04: Blood Type A NEGATIVE, Antibody Screen NEGATIVE, Crossmatch See Detail 02/01/22 06:22: POC Glucose 137 H 02/01/22 11:14: POC Glucose 174 H 02/01/22 17:06: POC Glucose 170 H 02/01/22 17:20: Urine Color Straw, Urine Clarity Clear, Urine pH 6.0, Ur Specific Rarden 1.015, Urine Protein Negative, Urine Glucose (UA) Normal, Urine Ketones Negative, Urine Occult Blood 10 H, Urine Nitrite Negative, Urine Bilirubin Negative, Urine Urobilinogen Normal, Ur Leukocyte Esterase Negative, Urine RBC 0-5 SEEN, Urine WBC 0 SEEN, Ur Squamous Epith Cells 0 SEEN, Urine Bacteria RARE, Urine Mucus 0 SEEN 02/01/22 18:30: Vancomycin Trough 21.1 H 02/01/22 18:30: Hgb 8.9 L, Hct 27.8 L 02/01/22 22:28: POC Glucose 171 H 02/02/22 03:37: WBC 8.3, RBC 3.40 L, Hgb 8.9 L, Hct 28.9 L, MCV 85.0, MCH 26.2 L, MCHC 30.8 L, RDW Std Deviation 47.0 H, RDW Coeff of James 15.2 H, Plt Count 281, MPV 9.7, Immature Gran % (Auto) 0.800, Neut % (Auto) 88.3 H, Lymph % (Auto) 7.3 L, [place] % (Auto) 3.6, Eos % (Auto) 0.0, Baso % (Auto) 0.0, Absolute Neuts (auto) 7.4, Absolute Lymphs (auto) 0.61 L, Nucleated RBC % 0 02/02/22 03:37: Sodium 135 L, Potassium 4.3, Chloride 102, Carbon Dioxide 27.0, Anion Gap 6, BUN 29 H, Creatinine 1.37 H, Estim Creat Clear Calc 48.10, Est GFR (MDRD) Af Amer 65, Est GFR (MDRD) Non-Af 54 L, BUN/Creatinine Ratio 21.2 H, Glucose 159 H, Calcium 8.4 L 02/02/22 06:19: POC Glucose 157 H Microbiology: Microbiology 01/31/22 00:35 Urine Catheter - Catheter Legionella Antigen - Final 01/31/22 00:35 Urine Catheter - Catheter Streptococcus pneumoniae Antigen (M - Final 01/31/22 01:30 Mucosa - Nasopharyngeal Respiratory Panel (PCR) - Final 01/30/22 23:41 Nasal Secretion SARS-CoV-2 Antigen (Rapid) - Final D/C Instructions Discharge Diet: No restrictions Meaningful Use Info Meaningful Use Diagnoses (Choose all that apply): None applicable Discharge Plan Admission Admit Date/Time: 01/31/22 00:53 Primary Reason for Your Visit: Pneumonia, anemia Attending Provider: Ced Osei Primary Care Provider: Vernon Mckenna Consulting Providers: Marly Tolentino ; Dede Vealsco Instructions Additional Instructions / Restrictions: SNF with hospice. Discharge Orders/Prescriptions Prescriptions: New ferrous sulfate [FeroSul] 325 mg (65 mg iron) Tablet 325 mg PO TIDCM 30 Days Qty: 90 0RF amoxicillin-pot clavulanate 875-125 mg Tablet 875 mg PO BID 4 Days Qty: 7 0RF prednisone 20 mg tablet 40 mg PO DAILY 5 Days Qty: 10 0RF Continued amitriptyline 150 mg Tablet 150 mg PO DAILY duloxetine [Cymbalta] 60 mg Capsule,Delayed Release(Dr/Ec) 90 mg PO DAILY cyanocobalamin (vitamin B-12) 1,000 mcg Lozenge 1,000 mcg SUBLINGUAL DAILY furosemide [Lasix] 40 mg Tablet 40 mg PO BID finasteride 5 mg Tablet 5 mg PO DAILY Entresto 24-26 mg Tablet 1 tab PO BID olanzapine 20 mg Tablet 30 mg PO QHS insulin glargine [Lantus Solostar U-100 Insulin] 100 unit/mL (3 mL) Insulin Pen 12 unit SUBCUT QHS melatonin 3 mg Capsule 3 mg PO QHS potassium chloride 20 mEq Tablet Extended Release 40 meq PO DAILY metoprolol succinate 50 mg Tablet Extended Release 24 Hr 50 mg PO DAILY prazosin 5 mg Capsule 5 mg PO QPM buspirone 10 mg Tablet 20 mg PO TID fluticasone propion-salmeterol 500-50 mcg/dose Blister With Device 1 inh INHALATION BID Changed pantoprazole 20 mg Tablet,Delayed Release (Dr/Ec) 40 mg PO BID 30 Days Qty: 120 0RF Held aspirin 81 mg Capsule 81 mg PO DAILY Hold Instructions: Resume on 02/16/22. Eliquis 5 mg Tablet 5 mg PO BID Hold Instructions: Resume on 02/16/22. Referrals / Follow Up: Vernon Mckenna MD [Primary Care Provider] - See Referral Note (As needed) Disposition Disposition (needs filled in before D/C Order can be placed): [facility] Facility Hospital Course Summary of Care Provided Hospital Course: This patient was seen in conjunction with SIENNA Bonilla .? I have independently interviewed and examined the patient and reviewed pertinent historical, laboratory, and other data.? Please refer to SIENNA Bonilla? note for details of this patient's presentation, findings, and recommendations.? I have reviewed? SIENNA Bonilla ? note and concur? with documented findings. In brief, patient Patient is a 76-year-old gentleman admitted with progressive shortness of breath.? Plan was for patient to have been transferred to inpatient hospice unit however patient was found to be more awake and alert this a.m. and elected not to proceed with inpatient hospice transfer for now 02/02/2022; patient was discharged back to his ECF with hospice to be initiated upon his arrival Physical Examination: GENERAL: Patient is frail looking HEENT: Atraumatic; EYES; Anicteric, Normal Conjunctiva NECK; supple, normal thyroid, RESPIRATORY: Diminished to auscultation CARDIOVASCULAR:? Regular S1 S2, GI:? soft, normoactive bowel sounds, : No Renal angle tenderness; EXTREMITIES: Bipedal edema, no clubbing, MUSCULOSKELETAL:? no muscle wasting NEURO:? Awake;? no lateralizing signs. SKIN:? No Rash PSYCH; Flat? affect Assessment: 1.? Acute on chronic hypoxic respiratory failure 2.? Acute on chronic congestive heart failure with reduced ejection fraction 3.? Suspected aspiration pneumonia 4.? COPD with acute exacerbation 5.? Anemia due to combination of anemia of chronic disorder and suspected acute blood loss from GI bleed 6.? Chronic kidney disease stage IIIb 7.? Ischemic cardiomyopathy status post AICD placement 8.? Chronic A. fib on systemic anticoagulation with Eliquis 9.? Essential hypertension antihypertensives held due to hypotension 10.? Diabetes mellitus type 2 11.? BPH 12.? History of colon CA currently remission 12.? Coronary artery disease status post CABG 13.? History of lung CA 14.? Depression with anxiety Hospital course; as documented above Total time spent by myself and the advanced practice practitioner evaluating patient, reviewing labs, subsequent management decisions, discussion with patient as well as other providers 40 minutes ( 25 of which was spent by myself) Documented by User: Dr. Ced Osei MD 02/02/22 11:40 Providers Date of Admission: 01/31/22 Reason For Visit: ACUTE HYPOXIA ON CHRONIC, SUSPECT PNA Diagnosis Discharge Diagnosis (1) Pneumonia: Status: Acute Code(s): J18.9 - Pneumonia, unspecified organism (2) Hypoxia: Status: Acute Code(s): R09.02 - Hypoxemia Medications at Discharge Home Medications amitriptyline 150 mg tablet 150 mg PO DAILY 01/31/22 apixaban 5 mg tablet (Eliquis) 5 mg PO BID 01/31/22 aspirin 81 mg capsule 81 mg PO DAILY 01/31/22 buspirone 10 mg tablet 20 mg PO TID 01/31/22 cyanocobalamin (vitamin B-12) 1,000 mcg sublingual lozenge 1,000 mcg sublingual DAILY 01/31/22 duloxetine 60 mg capsule,delayed release (Cymbalta) 90 mg PO DAILY 01/31/22 finasteride 5 mg tablet 5 mg PO DAILY 01/31/22 fluticasone 500 mcg-salmeterol 50 mcg/dose blistr powdr for inhalation 1 inh inhalation BID 01/31/22 furosemide 40 mg tablet (Lasix) 40 mg PO BID 01/31/22 insulin glargine 100 unit/mL (3 mL) subcutaneous pen (Lantus Solostar U-100 Insulin) 12 unit subcut QHS 01/31/22 melatonin 3 mg capsule 3 mg PO QHS 01/31/22 metoprolol succinate 50 mg tablet,extended release 24 hr 50 mg PO DAILY 01/31/22 olanzapine 20 mg tablet 30 mg PO QHS 01/31/22 potassium chloride 20 mEq tablet,extended release 40 meq PO DAILY 01/31/22 prazosin 5 mg capsule 5 mg PO QPM 01/31/22 sacubitril 24 mg-valsartan 26 mg tablet (Entresto) 1 tab PO BID 01/31/22 amoxicillin 875 mg-potassium clavulanate 125 mg tablet 875 mg PO BID 4 days #7 tabs 02/02/22 ferrous sulfate 325 mg (65 mg iron) tablet (FeroSul) 325 mg PO TIDCM 30 days #90 tabs 02/02/22 pantoprazole 20 mg tablet,delayed release 40 mg PO BID 30 days #120 tabs 02/02/22 prednisone 20 mg tablet 40 mg PO DAILY 5 days #10 tabs 02/02/22 Hospital Course Operations None Procedures None Summary of Care Provided Minutes Spent on Discharge: 40 ABG / Lab / Microbiology Data Result Diagrams: 02/02/22 03:37 02/02/22 03:37 Discharge Plan Admission Admit Date/Time: 01/31/22 00:53 Primary Reason for Your Visit: Pneumonia, anemia Attending Provider: Ced Osei Primary Care Provider: Vernon Mckenna Consulting Providers: Marly Tolentino ; Dede Velasco Instructions Additional Instructions / Restrictions: SNF with hospice. Discharge Orders/Prescriptions Prescriptions: New ferrous sulfate [FeroSul] 325 mg (65 mg iron) Tablet 325 mg PO TIDCM 30 Days Qty: 90 0RF amoxicillin-pot clavulanate 875-125 mg Tablet 875 mg PO BID 4 Days Qty: 7 0RF prednisone 20 mg tablet 40 mg PO DAILY 5 Days Qty: 10 0RF Continued amitriptyline 150 mg Tablet 150 mg PO DAILY duloxetine [Cymbalta] 60 mg Capsule,Delayed Release(Dr/Ec) 90 mg PO DAILY cyanocobalamin (vitamin B-12) 1,000 mcg Lozenge 1,000 mcg SUBLINGUAL DAILY furosemide [Lasix] 40 mg Tablet 40 mg PO BID finasteride 5 mg Tablet 5 mg PO DAILY Entresto 24-26 mg Tablet 1 tab PO BID olanzapine 20 mg Tablet 30 mg PO QHS insulin glargine [Lantus Solostar U-100 Insulin] 100 unit/mL (3 mL) Insulin Pen 12 unit SUBCUT QHS melatonin 3 mg Capsule 3 mg PO QHS potassium chloride 20 mEq Tablet Extended Release 40 meq PO DAILY metoprolol succinate 50 mg Tablet Extended Release 24 Hr 50 mg PO DAILY prazosin 5 mg Capsule 5 mg PO QPM buspirone 10 mg Tablet 20 mg PO TID fluticasone propion-salmeterol 500-50 mcg/dose Blister With Device 1 inh INHALATION BID Changed pantoprazole 20 mg Tablet,Delayed Release (Dr/Ec) 40 mg PO BID 30 Days Qty: 120 0RF Held aspirin 81 mg Capsule 81 mg PO DAILY Hold Instructions: Resume on 02/16/22. Eliquis 5 mg Tablet 5 mg PO BID Hold Instructions: Resume on 02/16/22. Referrals / Follow Up: Vernon Mckenna MD [Primary Care Provider] - See Referral Note (As needed) Disposition Disposition (needs filled in before D/C Order can be placed): Senior Living Facility Charges/Coding Visit Charges Inpatient E&M: 29996 Disch Hosp Hospital Course Consultations Consultations: Consultations 01/31/22 06:40 Consult: Hospice / Palliative Care Routine Consulting Provider: Dede Velasco Reason for Consult: Family requesting hospice. EMERGENT Consult: No MD Notified: Yes Date Notified: 01/31/22 Time Notified: 06:40 Method of Notification: spoke with Gerry Vigil None Procedures Procedures: None Summary of Care Provided Hospital Course: This patient was seen in conjunction with SIENNA Bonilla .? I have independently interviewed and examined the patient and reviewed pertinent historical, laboratory, and other data.? Please refer to SIENNA Bonilla? note for details of this patient's presentation, findings, and recommendations.? I have reviewed? SIENNA Bonilla ? note and concur? with documented findings. In brief, patient Patient is a 76-year-old gentleman admitted with progressive shortness of breath.? Plan was for patient to have been transferred to inpatient hospice unit however patient was found to be more awake and alert this a.m. and elected not to proceed with inpatient hospice transfer for now 02/02/2022; patient was discharged back to his ECF with hospice to be initiated upon his arrival Physical Examination: GENERAL: Patient is frail looking HEENT: Atraumatic; EYES; Anicteric, Normal Conjunctiva NECK; supple, normal thyroid, RESPIRATORY: Diminished to auscultation CARDIOVASCULAR:? Regular S1 S2, GI:? soft, normoactive bowel sounds, : No Renal angle tenderness; EXTREMITIES: Bipedal edema, no clubbing, MUSCULOSKELETAL:? no muscle wasting NEURO:? Awake;? no lateralizing signs. SKIN:? No Rash PSYCH; Flat? affect Assessment: 1.? Acute on chronic hypoxic respiratory failure 2.? Acute on chronic congestive heart failure with reduced ejection fraction 3.? Suspected aspiration pneumonia 4.? COPD with acute exacerbation 5.? Anemia due to combination of anemia of chronic disorder and suspected acute blood loss from GI bleed 6.? Chronic kidney disease stage IIIb 7.? Ischemic cardiomyopathy status post AICD placement 8.? Chronic A. fib on systemic anticoagulation with Eliquis 9.? Essential hypertension antihypertensives held due to hypotension 10.? Diabetes mellitus type 2 11.? BPH 12.? History of colon CA currently remission 12.? Coronary artery disease status post CABG 13.? History of lung CA 14.? Depression with anxiety Hospital course; as documented above Total time spent by myself and the advanced practice practitioner evaluating patient, reviewing labs, subsequent management decisions, discussion with patient as well as other providers 40 minutes ( 25 of which was spent by myself)
--- NOTE | 2022-02-02 11:18 | PHA.DC.MR ---
Pharmacy Service has performed discharge medication reconciliation for this patient. The patient's discharge medication list was reviewed for discrepancies and discrepancies were resolved. Home Medications amitriptyline 150 mg tablet 150 mg PO DAILY 01/31/22 apixaban 5 mg tablet (Eliquis) 5 mg PO BID 01/31/22 aspirin 81 mg capsule 81 mg PO DAILY 01/31/22 buspirone 10 mg tablet 20 mg PO TID 01/31/22 cyanocobalamin (vitamin B-12) 1,000 mcg sublingual lozenge 1,000 mcg sublingual DAILY 01/31/22 duloxetine 60 mg capsule,delayed release (Cymbalta) 90 mg PO DAILY 01/31/22 finasteride 5 mg tablet 5 mg PO DAILY 01/31/22 fluticasone 500 mcg-salmeterol 50 mcg/dose blistr powdr for inhalation 1 inh inhalation BID 01/31/22 furosemide 40 mg tablet (Lasix) 40 mg PO BID 01/31/22 insulin glargine 100 unit/mL (3 mL) subcutaneous pen (Lantus Solostar U-100 Insulin) 12 unit subcut QHS 01/31/22 melatonin 3 mg capsule 3 mg PO QHS 01/31/22 metoprolol succinate 50 mg tablet,extended release 24 hr 50 mg PO DAILY 01/31/22 olanzapine 20 mg tablet 30 mg PO QHS 01/31/22 potassium chloride 20 mEq tablet,extended release 40 meq PO DAILY 01/31/22 prazosin 5 mg capsule 5 mg PO QPM 01/31/22 sacubitril 24 mg-valsartan 26 mg tablet (Entresto) 1 tab PO BID 01/31/22 amoxicillin 875 mg-potassium clavulanate 125 mg tablet 875 mg PO BID 4 days #7 tabs 02/02/22 ferrous sulfate 325 mg (65 mg iron) tablet (FeroSul) 325 mg PO TIDCM 30 days #90 tabs 02/02/22 pantoprazole 20 mg tablet,delayed release 40 mg PO BID 30 days #120 tabs 02/02/22 prednisone 20 mg tablet 40 mg PO DAILY 5 days #10 tabs 02/02/22
--- NOTE | 2022-02-02 11:52 | CASEMGMT ---
XIOMY received orders for patient. XIOMY faxed orders to [facility] and [place]. XIOMY spoke with Kim at [facility]osp[facility] and she said their mobile unit can transport patient. Kim will call back with pickle solution maker time. Lesa JIMENEZ
--- NOTE | 2022-02-02 12:10 | CASEMGMT ---
XIOMY received a call from Kim at [facility]osp[facility] and they will roll picker patient at 1400. XIOMY e-mailed roll picker time to [place]. XIOMY also notified RN, glycerine plant operator, and patient. Plan: d/c back to [place] under Hospice care with [facility]. Hospice transported via their transportation. Lesa Kline MACHINE HEEL BUILDER TONY
[2022-02-02 12:20] LABS: Bedside Glucose 146 mg/dL (74-106)
--- NOTE | 2022-02-02 14:11 | NURSING ---
report called to Elena CASTRO
== END 2022-02-02 14:21 | DRG 189 ==
LOC: ED 23:48 → PCU 01-31 01:15
PROVIDERS: Nurse Practitioner Family; Admitting Provider Family Medicine; Emergency Provider Student in an Organized Health Care Education/Training Program; PCP Family Medicine; Visit Provider Internal Medicine
DX: J96.21 Acute and chronic respiratory failure with hypoxia (principal); J69.0 Pneumonitis due to inhalation of food and vomit; I50.23 Acute on chronic systolic (congestive) heart failure; D62 Acute posthemorrhagic anemia; E87.1 Hypo-osmolality and hyponatremia; I48.20 Chronic atrial fibrillation, unspecified; J44.1 Chronic obstructive pulmonary disease with (acute) exacerbation; I13.0 Hypertensive heart and chronic kidney disease with heart failure and stage 1 through stage 4 chronic kidney disease, or unspecified chronic kidney disease; D63.1 Anemia in chronic kidney disease; E86.0 Dehydration; E11.22 Type 2 diabetes mellitus with diabetic chronic kidney disease; F31.9 Bipolar disorder, unspecified; Z79.4 Long term (current) use of insulin; N18.32 Chronic kidney disease, stage 3b; I95.89 Other hypotension; I25.10 Atherosclerotic heart disease of native coronary artery without angina pectoris; K21.9 Gastro-esophageal reflux disease without esophagitis; E78.5 Hyperlipidemia, unspecified; I25.5 Ischemic cardiomyopathy; E86.1 Hypovolemia; F41.9 Anxiety disorder, unspecified; N40.0 Benign prostatic hyperplasia without lower urinary tract symptoms; Z66 Do not resuscitate; Z51.5 Encounter for palliative care; Z95.810 Presence of automatic (implantable) cardiac defibrillator; Z99.81 Dependence on supplemental oxygen; Z79.01 Long term (current) use of anticoagulants; Z79.82 Long term (current) use of aspirin; Z79.899 Other long term (current) drug therapy; Z85.038 Personal history of other malignant neoplasm of large intestine; Z85.118 Personal history of other malignant neoplasm of bronchus and lung; Z87.19 Personal history of other diseases of the digestive system; Z87.891 Personal history of nicotine dependence
CPT/HCPCS: 36415; 36600; 71045; 80048; 80053; 80202; 81001; 82728; 82803; 82962; 83540; 83550; 83880; 84145; 84484; 85014; 85018; 85025; 86850; 86900; 86901; 86920; 86922; 87086; 87088; 87449; 87633; 87641; 87811; 92610; 93005; 94002; 94003; 94640; 94660; 94762; 99285; J7030; J7040; J7050; P9016; P9612; A4216; J1940